=== PATIENT | female | born 1990 | race Caucasian/White ===

== ENCOUNTER 2020-04-23 17:32 | Outpatient (CLI) | payer OTHER, SELFPAY ==
[2020-04-23 18:09] LABS: Hemoglobin A1C 4.9 % (<5.7)
[2020-04-27 03:58] LABS: Insulin Level Total 5.9 uIU/mL (<=19.6)
[2020-04-27 12:08] LABS: DHEA-Sulfate 309 mcg/dL (18-391)
[2020-04-28 14:00] LABS: Testosterone Total 50 ng/dL (2-45)
[2020-04-29 07:25] LABS: Progesterone 0.7 ng/mL (***); Prolactin 10.1 ng/mL (***)
== END 2020-04-23 17:33 | disposition home or self-care (01) ==
LOC: ANHLAB 17:35
PROVIDERS: Visit Provider Obstetrics & Gynecology
DX: N91.2 Amenorrhea, unspecified (principal)
CPT/HCPCS: 36415; 82627; 83036; 83525; 84144; 84146; 84403; 84439; 84443

== ENCOUNTER 2020-06-08 16:33 | Outpatient (CLI) | payer OTHER, SELFPAY ==
[2020-06-11 05:02] LABS: Progesterone 4.7 ng/mL (***)
== END 2020-06-08 16:34 | disposition home or self-care (01) ==
LOC: ANHLAB 16:34
PROVIDERS: Family Provider Internal Medicine; Visit Provider Obstetrics & Gynecology Gynecology
DX: Z31.41 Encounter for fertility testing (principal)
CPT/HCPCS: 36415; 84144

== ENCOUNTER 2020-07-17 07:11 | Outpatient (CLI) | payer OTHER, SELFPAY ==
[2020-07-21 07:14] LABS: Progesterone 16.3 ng/mL (***)
== END 2020-07-17 07:12 | disposition home or self-care (01) ==
PROVIDERS: PCP Family Medicine; Visit Provider Obstetrics & Gynecology
DX: N97.9 Female infertility, unspecified (principal)
CPT/HCPCS: 36415; 84144

== ENCOUNTER 2020-08-17 12:36 | Outpatient (CLI) | payer OTHER, SELFPAY ==
[2020-08-21 06:34] LABS: Progesterone 15.7 ng/mL (***)
== END 2020-08-17 12:37 | disposition home or self-care (01) ==
PROVIDERS: PCP Family Medicine; Visit Provider Obstetrics & Gynecology
DX: Z31.41 Encounter for fertility testing (principal)
CPT/HCPCS: 36415; 84144

== ENCOUNTER 2020-09-30 15:21 | Emergency (ER) | payer OTHER, SELFPAY ==
[2020-09-30 15:30] VITALS: BP 141/94; PULSE 113; RESP 16; TEMP 36.9; O2SAT 100
--- NOTE | 2020-09-30 15:45 | ED.GENADULT ---
HPI - General Adult General Chief complaint: Upper Respiratory Infection Stated complaint: Sore Throat Time Seen by Provider: 09/30/20 15:46 Source: patient and RN notes reviewed Mode of arrival: ambulatory Limitations: no limitations History of Present Illness HPI narrative: 30-year-old female presents with complaints of upper respiratory infection, postnasal drainage, intermittent cough for the past 9 days. Stella reports increasing symptoms over the past 5 days with sore throat. Allergy medication, Sudafed, and DayQuil without relief. No high fevers, drooling, neck or throat swelling. Pain is bilateral. Hurts to swallow. Exacerbation factors consist of eating and drinking. Rhinorrhea and nasal congestion. Hoarse voice. No nausea, vomiting, or abdominal pain. Tolerating liquids well. Denies dyspnea, difficulty swallowing, jaw pain, dental pain, facial pain, foreign body sensation, and rash. [facility] September 15, 2020. Remains active. The patient reports she have not been diagnosed with COVID-19. The patient reports she received 2 [employer] COVID-19 vacines. The patient reports she is not waiting for the results of a COVID-19 lab test. The patient reports she do not have chills, weakness, or fatigue. Denies chest pain. The patient reports she do not have any loss of taste or smell or diarrhea. Denies recent traveling. Denies concerns for COVID-19 or exposures. At this time, patient is not suspected of having COVID-19. Some parts of this dictation were generated by voice recognition software and may contain typographical and/or grammatical inaccuracies. Related Data Home Medications Medication Instructions Recorded Confirmed metformin mg 03/25/19 07/28/20 Allergies Allergy/AdvReac Type Severity Reaction Status Date / Time No Known Allergies Allergy Unknown Verified 07/28/20 09:54 Review of Systems Review of Systems: Narrative: CONSTITUTIONAL: Denies fever, chills, sweats. EYES: Denies visual changes, redness, discharge. ENT: Denies otalgia. Complains of sore throat, rhinorrhea, congestion, hoarse voice. CARDIOVASCULAR: Denies chest pain, palpitations, edema. RESPIRATORY: Denies dyspnea, wheezing. Complains of intermittent cough. GASTROINTESTINAL: Denies abdominal pain, nausea, vomiting, diarrhea. SKIN: Denies rash or itching. MUSCULOSKELETAL: Denies acute back pain, joint pain, or myalgia. NEUROLOGIC: Denies numbness or focal weakness. PSYCHIATRIC: Denies anxiety or depression. All systems reviewed & are unremarkable except as noted in HPI and below. [facility] Past Medical History Medical History (Updated 10/09/20 @ 11:25 by JAGDISH Andersen) Anxiety delivery delivered PCOS (polycystic ovarian syndrome) Secondary oligomenorrhea Surgical History Surgical History (Updated 09/30/20 @ 16:16 by JAGDISH Andersen) Previous section X1 Family History Family History (Updated 09/30/20 @ 16:17 by JAGDISH Andersen) Father Hypertension Mother Alive and well Other PCOS (polycystic ovarian syndrome) Social History Social History (Updated 09/30/20 @ 16:18 by JAGDISH Andersen) Social History: Smoking status: Never smoker Tobacco type: cigarettes Second hand tobacco smoke exposure: No Alcohol intake: current Alcohol use details: Stella reports using alcohol once or twice a month Substance use: never Substance use type: does not use Living arrangements: with family Occupation/Education: occupation Gender identity (if verbalized by the patient): Female Sexual Orientation (if Verbalized by the Patient): Straight or Heterosexual Comments At time of signature, agree with nurse past medical, surgical, social, and family history. There is no relevant family history pertinent to the presenting complaint. Exam Narrative: Exam Narrative: GENERAL: This is a well-nourished, well-developed patient, in no apparent distress. Speaks in
== END 2020-09-30 16:19 | disposition home or self-care (01) ==
PROVIDERS: Emergency Provider Nurse Practitioner Family; PCP Family Medicine
DX: J02.9 Acute pharyngitis, unspecified (principal); E28.2 Polycystic ovarian syndrome
CPT/HCPCS: 87081; 87880; 99213; G0463

== ENCOUNTER 2020-10-13 16:43 | Outpatient (CLI) | payer OTHER, SELFPAY ==
[2020-10-13 17:33] LABS: Beta HCG Quantitative < 2.39 mIU/ML
== END 2020-10-13 16:44 | disposition home or self-care (01) ==
LOC: ANHLAB 16:45
PROVIDERS: PCP Family Medicine; Visit Provider Obstetrics & Gynecology
DX: N91.2 Amenorrhea, unspecified (principal)
CPT/HCPCS: 36415; 84702

== ENCOUNTER 2020-11-12 10:06 | Outpatient (CLI) | payer OTHER, SELFPAY ==
[2020-11-12 11:03] LABS: Beta HCG Quantitative < 2.39 mIU/ML
[2020-11-12] MEDS: RHO(D) IMMUNE GLOBULIN 300 MCG/2 ML SYRINGE IM (13:27)
== END 2020-11-12 10:07 | disposition home or self-care (01) ==
LOC: ANHLAB 10:09
PROVIDERS: PCP Family Medicine; Visit Provider Obstetrics & Gynecology
DX: O26.21 Pregnancy care for patient with recurrent pregnancy loss, first trimester (principal); O26.851 Spotting complicating pregnancy, first trimester; Z3A.00 Weeks of gestation of pregnancy not specified
CPT/HCPCS: 36415; 84702; 85461; 90384; 96372; J2790

== ENCOUNTER 2021-01-08 10:56 | Outpatient (CLI) | payer OTHER, SELFPAY ==
[2021-01-08 11:49] LABS: Beta HCG Quantitative < 2.39 mIU/ML
[2021-01-13 07:05] LABS: Progesterone 7.7 ng/mL (***)
== END 2021-01-08 10:57 | disposition home or self-care (01) ==
PROVIDERS: PCP Family Medicine; Visit Provider Obstetrics & Gynecology
DX: N97.0 Female infertility associated with anovulation (principal); E28.2 Polycystic ovarian syndrome
CPT/HCPCS: 36415; 84144; 84702

== ENCOUNTER 2021-02-22 13:00 | Outpatient (CLI) | payer OTHER, SELFPAY ==
[2021-02-22 13:54] LABS: Beta HCG Quantitative < 2.39 mIU/ML
== END 2021-02-22 13:01 | disposition home or self-care (01) ==
PROVIDERS: PCP Family Medicine; Visit Provider Obstetrics & Gynecology
DX: N91.2 Amenorrhea, unspecified (principal)
CPT/HCPCS: 36415; 84702

== ENCOUNTER 2021-06-23 07:23 | Outpatient (RCR) | payer OTHER, SELFPAY ==
[2021-06-18 11:02] LABS: Beta HCG Quantitative 7.35 mIU/ML
[2021-06-21 08:52] LABS: Beta HCG Quantitative 6.57 mIU/ML
[2021-06-23 08:36] LABS: Beta HCG Quantitative < 2.39 mIU/ML
== END 2021-09-16 23:59 | disposition home or self-care (01) ==
LOC: ANHLAB 07:23
PROVIDERS: PCP Family Medicine; Visit Provider Obstetrics & Gynecology Gynecology
DX: O36.0190 Maternal care for anti-D [Rh] antibodies, unspecified trimester, not applicable or unspecified (principal); Z3A.00 Weeks of gestation of pregnancy not specified
CPT/HCPCS: 36415; 84702; 85461

== ENCOUNTER 2021-07-30 08:05 | Emergency (ER) | payer OTHER, SELFPAY ==
[2021-07-30 08:13] VITALS: BP 125/81; PULSE 89; RESP 16; TEMP 36.7; O2SAT 99
--- NOTE | 2021-07-30 08:32 | ED.FEMALEGU ---
HPI - Female Genitourinary General Chief complaint: Urogenital-Female Stated complaint: uti Time Seen by Provider: 07/30/21 08:21 Source: patient and RN notes reviewed Mode of arrival: ambulatory Limitations: no limitations History of Present Illness HPI Narrative: Patient presents today with a 10-day history of cloudy, malodorous urine x10 days. Patient is also experiencing intermittent sharp pains to the right lower quadrant. Denies dysuria, hematuria, frequency, fever. She has been taking some Tylenol with relief. History of PCOS. She did have some blood tests drawn a few days ago to check for , which was negative. Related Data Home Medications Medication Instructions Recorded Confirmed metformin 500 mg PO DAILY 03/25/19 07/30/21 Allergies Allergy/AdvReac Type Severity Reaction Status Date / Time No Known Allergies Allergy Unknown Verified 07/30/21 08:10 Review of Systems Review of Systems: CONSTITUTIONAL: Denies body aches, fever, chills, or sweats. EYES: Denies visual changes, redness, or discharge. ENT: Denies rhinorrhea, congestion, sore throat, or otalgia. CARDIOVASCULAR: Denies chest pain, palpitations, or edema. RESPIRATORY: Denies cough or dyspnea. GASTROINTESTINAL: Denies nausea, vomiting, or diarrhea.+ Lower abdominal pains GENITOURINARY:+ Cloudy malodorous urine. SKIN: Denies rash, itching, or wounds. MUSCULOSKELETAL: Denies back pain, joint pain, or myalgia. NEUROLOGIC: Denies headache, numbness, tingling, or weakness. PSYCH: Denies depression or anxiety. [facility] Past Medical History Medical History Anxiety delivery delivered PCOS (polycystic ovarian syndrome) Secondary oligomenorrhea Surgical History Surgical History Previous section X1 Family History Family History Father Hypertension Mother Alive and well Other PCOS (polycystic ovarian syndrome) Social History Social History Social History: Smoking status: Never smoker Tobacco type: cigarettes Second hand tobacco smoke exposure: No Alcohol intake: current Alcohol use details: Stella reports using alcohol once or twice a month Substance use: never Substance use type: does not use Gender identity (if verbalized by the patient): Female Sexual Orientation (if Verbalized by the Patient): Straight or Heterosexual Comments At time of signature, I have reviewed and agree with nursing past medical, surgical, social and family history unless otherwise noted. Please see nursing chart for further information. There is no relevant family history pertinent to the presenting complaint Exam Narrative: GENERAL: Well-appearing, well-nourished, and in no acute distress. HEAD: Normocephalic, atraumatic. EYES: EOMI. No redness or drainage. Conjunctivae normal. ENT: Mucous membranes pink and moist. NECK: Normal AROM. CHEST: No respiratory distress. Clear to auscultation. HEART: Regular rate and rhythm. No murmur appreciated. Normal peripheral pulses. ABDOMEN: Soft, nondistended, normal active bowel sounds. -CVAT. +tenderness to the right lower quadrant without rebound or guarding. MUSCULOSKELETAL: No bony tenderness. EXTREMITIES: Normal range of motion. No edema. SKIN: Warm, dry, no rash. Capillary refill normal. Normal skin turgor. NEURO: No focal deficits. Alert and oriented x3. Gait steady. PSYCH: Normal affect. No signs of depression or anxiety. Course Course Level of Care: Express Care Visit Vital Signs Vital signs: Vital Signs Temperature 98.1 F 07/30/21 08:13 Pulse Rate 89 07/30/21 08:13 Respiratory Rate 16 07/30/21 08:13 Blood Pressure 125/81 07/30/21 08:13 Pulse Oximetry 99 07/30/21 08:13 Tempera
== END 2021-07-30 08:40 | disposition home or self-care (01) ==
PROVIDERS: Emergency Provider Nurse Practitioner; PCP Family Medicine
DX: N30.01 Acute cystitis with hematuria (principal); E28.2 Polycystic ovarian syndrome
CPT/HCPCS: 81003; 87077; 87086; 87186; 99213; G0463

== ENCOUNTER 2021-08-13 08:01 | Outpatient (RCR) | payer OTHER, SELFPAY ==
[2021-07-28 13:03] LABS: Beta HCG Quantitative < 2.39 mIU/ML
[2021-08-09 11:30] LABS: Beta HCG Quantitative 39.94 mIU/ML
[2021-08-11 08:26] LABS: Beta HCG Quantitative 70.24 mIU/ML
[2021-08-13 08:42] LABS: Beta HCG Quantitative 149.67 mIU/ML
== END 2021-10-26 23:59 | disposition home or self-care (01) ==
LOC: ANHLAB 08:01
PROVIDERS: PCP Family Medicine; Visit Provider Obstetrics & Gynecology Gynecology
DX: O26.21 Pregnancy care for patient with recurrent pregnancy loss, first trimester (principal); Z3A.00 Weeks of gestation of pregnancy not specified
CPT/HCPCS: 36415; 84702

== ENCOUNTER 2021-08-23 09:45 | Outpatient (CLI) | payer OTHER, SELFPAY ==
[2021-08-23] MEDS: RHO(D) IMMUNE GLOBULIN 300 MCG/2 ML SYRINGE IM (16:24)
== END 2021-08-23 09:46 | disposition home or self-care (01) ==
PROVIDERS: PCP Family Medicine; Visit Provider Obstetrics & Gynecology Gynecology
DX: O26.21 Pregnancy care for patient with recurrent pregnancy loss, first trimester (principal); Z3A.00 Weeks of gestation of pregnancy not specified
CPT/HCPCS: 36415; 84702; 85461; 90384; 96372; J2790

== ENCOUNTER 2021-08-30 10:34 | Outpatient (CLI) | payer OTHER, SELFPAY ==
--- NOTE | ~2021-08-30 | US_ITS ---
EXAMINATION: US OB <=14 wk fetus w TV DATE: 08/30/2021 12:03 INDICATION: Uncertain dating of first trimester TECHNIQUE: Real-time pelvic ultrasound utilizing both a transvaginal and transabdominal probe was pe rformed. The interpreting radiologist was not present for the study. COMPARISON: None. FINDINGS: The uterus measures 10.0 x 7.3 x 6.4 cm. There is an intrauterine gestational sac. A yolk sac and fe valentín pole are identified. The crown rump length measures 8 mm, which correlates with an estimated gest ational age of 6 weeks and 5 days. heart motion is identified measuring 138 beats per minute (b pm) by M-mode Doppler. Minimal anechoic fluid within the endometrial canal. The right ovary measures 2.6 x 1.8 x 1.9 cm. The left ovary measures 3.7 x 2.4 x 2.5 cm. 1.7 cm thick-walled centrally anechoi c corpus luteum cyst in the left ovary. There is no free fluid in the pelvis. IMPRESSION: 1. Single living fetus with heart rate of 138 bpm. 2. Gestational age by ultrasound of 6 weeks 5 day(s) +/- 4 day(s) with ultrasound estimated date of delivery (HALLE) of 04/20/2022. Reviewed, dictated and finalized at location A. IMPRESSION: 1. Single living fetus with heart rate of 138 bpm. 2. Gestational age by ultrasound of 6 weeks 5 day(s) +/- 4 day(s) with ultraso und estimated date of delivery (HALLE) of 04/20/2022.
== END 2021-08-30 10:35 | disposition home or self-care (01) ==
LOC: ANHIMG 10:38
PROVIDERS: PCP Family Medicine; Visit Provider Obstetrics & Gynecology Gynecology
DX: Z36.87 Encounter for antenatal screening for uncertain dates (principal); Z3A.01 Less than 8 weeks gestation of pregnancy
CPT/HCPCS: 76801; 76817

== ENCOUNTER 2021-10-08 14:30 | Outpatient (CLI) | payer OTHER, SELFPAY ==
[2021-10-08 15:07] LABS: Basophils Percent Auto 0.2 % (0.2-1.2); Eosinophils Absolute Auto 0.1 K/mm3 (0-0.3); Eosinophils Percent Auto 0.6 % (0-4.4); Hematocrit 36.6 % (37.0-47.0); Immature Granulocyte Absolute 0.06 K/mm3 (0.00-0.031); Immature Granulocyte Percent A 0.4 % (0-0.5); Lymphocytes Percent Auto 17.2 % (18.3-44.2); Mean Corpuscular HGB Conc 32.8 g/dl (32-36); Mean Corpuscular Hemoglobin 31.6 pg (26-34); Mean Corpuscular Volume 96.3 fl (80-100); Mean Platelet Volume 10.2 fl (7.4-10.4); Monocytes Absolute Auto 0.9 K/mm3 (0.1-0.6); Monocytes Percent Auto 6.2 % (2.6-8.5); Neutrophils Absolute Auto 10.5 K/mm3 (1.3-6.7); Neutrophils Percent Auto 75.4 % (45.5-73.1); Platelet Count Result 264 k/mm3 (150-375); Red Cell Distribution Width 13.6 % (11.5-14.5); White Blood Count 13.9 K/mm3 (4.5-10.0)
[2021-10-08 15:16] LABS: Alanine Aminotransferase 10 U/L (6-35); Albumin Level 3.9 g/dL (3.5-5.1); Alkaline Phosphatase 77 U/L (38-126); Anion Gap 7 mmol/L (8-16); Aspartate Amino Transferase 35 U/L (14-36); Bilirubin,Total 0.2 mg/dL (0.2-1.3); Blood Urea Nitrogen 11 mg/dL (7-17); Carbon Dioxide 22 mmol/L (22-30); Chloride 106 mmol/L (98-107); Estimated Glomerular Filt Rate > 60; Glucose 82 mg/dL (65-110); Potassium 4.1 mmol/L (3.4-5.0); Sodium 135 mmol/L (137-145)
[2021-10-08 15:45] LABS: Vitamin D 25 Hydroxy 32.9 ng/mL
[2021-10-08 15:56] LABS: HIV 1/2 Ab P24 Ag Result Negative (Negative)
[2021-10-08 16:03] LABS: Hepatitis B Surface Antigen Negative (Negative); Rubella IgG Antibody 18.7 IU/ML
[2021-10-08 16:16] LABS: Hepatitis C Virus Antibody Negative (Negative)
[2021-10-11 06:27] LABS: Rapid Plasma Reagin Non-Reactive (NonReactive)
== END 2021-10-08 14:31 | disposition home or self-care (01) ==
LOC: ANHLAB 14:33
PROVIDERS: PCP Family Medicine; Visit Provider Advanced Practice Midwife
DX: Z36.9 Encounter for antenatal screening, unspecified (principal)
CPT/HCPCS: 36415; 80053; 82306; 82728; 82747; 85025; 86592; 86703; 86762; 86803; 86850; 86880; 86900; 86901; 86902; 87340; G0432

== ENCOUNTER 2021-10-12 14:41 | Outpatient (CLI) | payer OTHER, SELFPAY ==
[2021-10-12 15:15] LABS: Hemoglobin A1C 4.7 % (<5.7)
== END 2021-10-12 14:42 | disposition home or self-care (01) ==
LOC: ANHLAB 14:46
PROVIDERS: PCP Family Medicine; Visit Provider Advanced Practice Midwife
DX: Z36.9 Encounter for antenatal screening, unspecified (principal); Z3A.00 Weeks of gestation of pregnancy not specified
CPT/HCPCS: 36415; 83036

== ENCOUNTER 2021-11-02 16:19 | Outpatient (CLI) | payer OTHER, SELFPAY ==
--- NOTE | ~2021-11-02 | US_ITS ---
EXAMINATION: US OB follow up DATE: 11/02/2021 16:55 INDICATION: Cramping during first trimester TECHNIQUE: Real-time ultrasound of the pelvis was performed. The interpreting radiologist was not pre sent for the study. COMPARISON: 08/30/2021 FINDINGS: There is a single living fetus in transverse lie. The placenta is posterior and 5.3 cm from the internal cervical os. cardiac activity and movement are noted. heart rate is 1 55 beats per minute (bpm). The amniotic fluid index is subjectively normal. The following biometric data were obtained: Biparietal diameter (BPD): 3.3 cm; head circumference (HC): 12.3 cm; abdominal circumference (AC): 10 .0 cm; femur length (FL): 2.1 cm. These measurements are concordant. Estimated weight is 146 g +/- 21 g, which correlates with the 32nd percentile when 04/17/2022 is used as estimated date of delivery. As single measurements, these parameters are each equal to the following estimated gestational ages w ith ranges of +/- 2 standard deviations: BPD: 16 weeks 1 days +/- 1 weeks 1 days. HC: 16 weeks 1 days +/- 1 weeks 1 days. AC: 16 weeks 0 days +/- 1 weeks 5 days. FL: 16 weeks 2 days +/- 1 weeks 3 days. estimated gestational age based solely on measurements from this exam is 16 weeks 1 days +/- 1 weeks 1 days. IMPRESSION: 1. Single living fetus in transverse lie. 2. Estimated weight is 146 g +/- 21 g, which correlates with the 32nd percentile when 04/17/2022 is used as estimated date of delivery. Reviewed, dictated and finalized at location A. IMPRESSION: 1. Single living fetus in transverse lie. 2. Estimated weight is 146 g +/- 21 g, which correlates with the 32nd per centile when 04/17/2022 is used as estimated date of delivery.
== END 2021-11-02 16:20 | disposition home or self-care (01) ==
PROVIDERS: PCP Family Medicine; Visit Provider Obstetrics & Gynecology Gynecology
DX: O26.92 Pregnancy related conditions, unspecified, second trimester (principal); Z3A.16 16 weeks gestation of pregnancy
CPT/HCPCS: 76816

== ENCOUNTER 2021-11-09 10:07 | Emergency (ER) | payer OTHER, SELFPAY ==
[2021-11-09 10:17] VITALS: BP 132/66; PULSE 98; RESP 20; TEMP 36.9; O2SAT 100
--- NOTE | 2021-11-09 10:50 | ED.URI ---
HPI - URI/Sore Throat General Chief Complaint: Upper Respiratory Infection Stated Complaint: ENT pain Time Seen by Provider: 11/09/21 10:43 Source: patient Mode of arrival: ambulatory Limitations: no limitations History of Present Illness HPI Narrative: Patient presents today complaining of a 2-week history of sore throat, ear pressure, congestion, cough. States the symptoms have waxed and waned over the past 2 weeks, but are now worse again. She is currently 17 weeks . Denies shortness of breath or difficulty swallowing. She currently rates her pain 3/10 and has been taking Tylenol with mild relief. No history of asthma or COPD. Related Data Home Medications Medication Instructions Recorded Confirmed metformin 500 mg tablet 500 mg PO DAILY 03/25/19 07/30/21 Allergies Allergy/AdvReac Type Severity Reaction Status Date / Time No Known Allergies Allergy Unknown Verified 07/30/21 08:10 Review of Systems Review of Systems: CONSTITUTIONAL: Denies body aches, fever, chills, or sweats. EYES: Denies visual changes, redness, or discharge. ENT: Denies rhinorrhea. + Congestion, sore throat, bilateral ear pressure CARDIOVASCULAR: Denies chest pain, palpitations, or edema. RESPIRATORY: Denies dyspnea.+ Cough GASTROINTESTINAL: Denies abdominal pain, nausea, vomiting, or diarrhea. GENITOURINARY: Denies dysuria or hematuria. SKIN: Denies rash, itching, or wounds. MUSCULOSKELETAL: Denies back pain, joint pain, or myalgia. NEUROLOGIC: Denies headache, numbness, tingling, or weakness. PSYCH: Denies depression or anxiety. [facility] Past Medical History Medical History Anxiety delivery delivered PCOS (polycystic ovarian syndrome) Secondary oligomenorrhea Surgical History Surgical History Previous section X1 Family History Family History Father Hypertension Mother Alive and well Other PCOS (polycystic ovarian syndrome) Social History Social History Social History: Smoking status: Never smoker Tobacco type: cigarettes Second hand tobacco smoke exposure: No Alcohol intake: current Alcohol use details: Stella reports using alcohol once or twice a month Substance use: never Substance use type: does not use Gender identity (if verbalized by the patient): Female Sexual Orientation (if Verbalized by the Patient): Straight or Heterosexual Comments At time of signature, I have reviewed and agree with nursing past medical, surgical, social and family history unless otherwise noted. Please see nursing chart for further information. There is no relevant family history pertinent to the presenting complaint Exam Narrative: GENERAL: Well-appearing, well-nourished, and in no acute distress. HEAD: Normocephalic, atraumatic. EYES: EOMI. No redness or drainage. Conjunctivae normal. ENT: Mucous membranes pink and moist. Nares congested.. No rhinorrhea. Bilateral maxillary sinus tenderness. No frontal sinus tenderness. TMs normal bilaterally. Throat normal. Uvula midline. NECK: Normal AROM. Supple. No lymphadenopathy. CHEST: No respiratory distress. Clear to auscultation. HEART: Regular rate and rhythm. No murmur appreciated. Normal peripheral pulses. EXTREMITIES: Normal range of motion. No edema. SKIN: Warm, dry, no rash. Capillary refill normal. Normal skin turgor. NEURO: No focal deficits. Alert and oriented x3. Gait steady. PSYCH: Normal affect. No signs of depression or anxiety. Course Course Level of Care: Express Care Visit Vital Signs Vital signs: Vital Signs Temperature 98.4 F 11/09/21 10:17 Pulse Rate 98 11/09/21 10:17 Respiratory Rate 20 11/09/21 10:17 Blood Pressure 132/66 11/09/21 10:17 Pulse Oxi
== END 2021-11-09 10:57 | disposition home or self-care (01) ==
PROVIDERS: Emergency Provider Nurse Practitioner; PCP Family Medicine
DX: O99.512 Diseases of the respiratory system complicating pregnancy, second trimester (principal); Z3A.17 17 weeks gestation of pregnancy; J01.00 Acute maxillary sinusitis, unspecified; O99.282 Endocrine, nutritional and metabolic diseases complicating pregnancy, second trimester; E28.2 Polycystic ovarian syndrome
CPT/HCPCS: 99213; G0463

== ENCOUNTER 2022-01-24 10:09 | Outpatient (CLI) | payer OTHER, SELFPAY ==
[2022-01-24 11:47] LABS: Hematocrit 32.5 % (37.0-47.0); Hemoglobin 10.9 g/dL (12.0-15.0)
[2022-01-24 12:00] LABS: Glucose 1 Hour PP 50gm Dose 111 mg/dL
[2022-01-24 12:38] LABS: Vitamin D 25 Hydroxy 33.2 ng/mL
[2022-01-24 12:39] LABS: HIV 1/2 Ab P24 Ag Result Negative (Negative)
== END 2022-01-24 10:10 | disposition home or self-care (01) ==
PROVIDERS: Advanced Practice Midwife; PCP Family Medicine; Visit Provider Obstetrics & Gynecology Gynecology
DX: Z36.9 Encounter for antenatal screening, unspecified (principal); Z3A.00 Weeks of gestation of pregnancy not specified
CPT/HCPCS: 36415; 82306; 82947; 85014; 85018; 86703; G0432

== ENCOUNTER 2022-02-16 09:06 | Outpatient (CLI) | payer OTHER, SELFPAY ==
[2022-02-16] MEDS: RHO(D) IMMUNE GLOBULIN 300 MCG/2 ML SYRINGE IM (14:01)
== END 2022-02-16 09:07 | disposition home or self-care (01) ==
PROVIDERS: PCP Family Medicine; Visit Provider Obstetrics & Gynecology Gynecology
DX: O36.0130 Maternal care for anti-D [Rh] antibodies, third trimester, not applicable or unspecified (principal); Z3A.00 Weeks of gestation of pregnancy not specified
CPT/HCPCS: 36415; 85461; 90384; 96372; J2790

== ENCOUNTER 2022-03-02 14:38 | Outpatient (CLI) | payer OTHER, SELFPAY ==
--- NOTE | ~2022-03-02 | US_ITS ---
EXAMINATION: US OB follow up DATE: 03/02/2022 15:37 INDICATION: Size greater than dates during third trimester TECHNIQUE: Real-time ultrasound of the pelvis was performed. The interpreting radiologist was not pre sent for the study. COMPARISON: None. FINDINGS: There is a single living fetus in vertex presentation. The placenta is fundal/posterior. Fe valentín cardiac activity and movement are noted. heart rate is 148 beats per minute (bpm). Th e amniotic fluid index is 15.0 cm which is normal (normal range: 8.3 cm to 24.5 cm). The following biometric data were obtained: Biparietal diameter (BPD): 8.2 cm; head circumference (HC): 30.5 cm; abdominal circumference (AC): 31 cm; femur length (FL): 6.6 cm. These measurements are concordant. Estimated weight is 2418 g +/- 362 g, which correlates with the 82nd percentile when 04/20/2022 is used as estimated date of delivery. As single measurements, these parameters are each equal to the following estimated gestational ages w ith ranges of +/- 2 standard deviations: BPD: 33 weeks 1 days +/- 3 weeks 1 days. HC: 33 weeks 6 days +/- 3 weeks 0 days. AC: 34 weeks 6 days +/- 3 weeks 0 days. FL: 34 weeks 0 days +/- 3 weeks 0 days. estimated gestational age based solely on measurements from this exam is 34 weeks 0 days +/- 2 weeks 3 days. IMPRESSION: 1. Single living fetus in vertex presentation. 2. Normal amniotic fluid index. 3. Estimated weight is 2418 g +/- 362 g, which correlates with the 82nd percentile when 04/20/20 22 is used as estimated date of delivery. Reviewed, dictated and finalized at location B. IMPRESSION: 1. Single living fetus in vertex presentation. 2. Normal amniotic fluid index. 3. Estimated weight is 2418 g +/- 362 g, which correlates with the 82nd p ercentile when 04/20/2022 is used as estimated date of delivery.
== END 2022-03-02 14:39 | disposition home or self-care (01) ==
PROVIDERS: PCP Family Medicine; Visit Provider Advanced Practice Midwife
DX: O36.63X0 Maternal care for excessive fetal growth, third trimester, not applicable or unspecified (principal); Z3A.34 34 weeks gestation of pregnancy
CPT/HCPCS: 76816

== ENCOUNTER 2022-04-06 16:05 | Outpatient (CLI) | payer OTHER, SELFPAY ==
--- NOTE | 2022-04-06 16:15 | PC.NURSE ---
To OB from office. Pt states she had elevated blood pressure in office prior to arrival. Here for PIH evaluation.
[2022-04-06 16:30] VITALS: TEMP 36.8
[2022-04-06 16:39] VITALS: BP 140/71; PULSE 110
[2022-04-06 16:46] VITALS: BP 115/59; PULSE 100
[2022-04-06 16:56] LABS: Appearance Urine Slightly Cloudy (Clear); Basophils Percent Auto 0.2 % (0.2-1.2); Bilirubin Urine Negative (Negative); Blood Urine Trace-lysed (Negative); Color Urine Yellow (Yellow); Eosinophils Absolute Auto 0.1 K/mm3 (0-0.3); Eosinophils Percent Auto 0.4 % (0-4.4); Glucose Urine UA Negative (Negative); Hematocrit 36.3 % (37.0-47.0); Hemoglobin 11.9 g/dL (12.0-15.0); Immature Granulocyte Absolute 0.18 K/mm3 (0.00-0.031); Immature Granulocyte Percent A 1.3 % (0-0.5); Ketones Urine Negative (Negative); Leukocyte Esterase Ur 2+ LEU/UL (NEGATIVE); Lymphocytes Absolute Auto 2.08 K/mm3 (0.9-3.2); Lymphocytes Percent Auto 14.9 % (18.3-44.2); Mean Corpuscular HGB Conc 32.8 g/dl (32-36); Mean Corpuscular Hemoglobin 32.5 pg (26-34); Mean Corpuscular Volume 99.2 fl (80-100); Mean Platelet Volume 10.6 fl (7.4-10.4); Monocytes Percent Auto 6.9 % (2.6-8.5); Neutrophils Absolute Auto 10.7 K/mm3 (1.3-6.7); Neutrophils Percent Auto 76.3 % (45.5-73.1); Nitrate Urine Negative (Negative); Platelet Count Result 255 k/mm3 (150-375); Protein Urine Negative (Negative); Red Blood Count 3.66 M/mm3 (4.2-5.4); Red Cell Distribution Width 13.4 % (11.5-14.5); Urobilinogen Urine 0.2 mg/dL (<2.0)
[2022-04-06 17:01] VITALS: BP 114/61; PULSE 98
[2022-04-06 17:05] LABS: Bacteria Urine 2+ /hpf; Mucus Urine Rare /lpf; Squamous Epithelial Cell Urine Many /hpf (Few)
[2022-04-06 17:06] LABS: Total Protein Urine Random 11 mg/dL; Ur Ttl Prot Creatinine Ratio 0.32 mg/mg (0-0.20)
[2022-04-06 17:08] LABS: Alanine Aminotransferase 14 U/L (6-35); Albumin Level 3.6 g/dL (3.5-5.1); Alkaline Phosphatase 109 U/L (38-126); Anion Gap 9 mmol/L (8-16); Aspartate Amino Transferase 19 U/L (14-36); Bilirubin,Total 0.2 mg/dL (0.2-1.3); Blood Urea Nitrogen 8 mg/dL (7-17); Calcium 8.8 mg/dL (8.4-10.2); Carbon Dioxide 21 mmol/L (22-30); Chloride 106 mmol/L (98-107); Estimated Glomerular Filt Rate > 60; Glucose 99 mg/dL (65-110); Potassium 3.8 mmol/L (3.4-5.0); Sodium 136 mmol/L (137-145); Uric Acid 5.1 mg/dL (2.5-7.5)
[2022-04-06 17:16] VITALS: BP 115/67; PULSE 91
[2022-04-06 17:19] LABS: Add Urine Microscopic? YES
--- NOTE | 2022-04-06 17:46 | PC.NURSE ---
Yumiko Holliday CNM discussed plan with Dr. Pavon. Pt to start 24 hour urine and office will follow up with her on Monday.
--- NOTE | 2022-04-06 18:11 | PC.NURSE ---
Documentation noted as Clarisa Thrasher RN was done by Paula Foss RN
== END 2022-04-06 18:00 | disposition home or self-care (01) ==
LOC: ANHOBOP 16:21 → ANHLDR 16:22
PROVIDERS: Advanced Practice Midwife; PCP Family Medicine; Visit Provider Obstetrics & Gynecology Gynecology
DX: O13.9 Gestational [pregnancy-induced] hypertension without significant proteinuria, unspecified trimester (principal); Z3A.00 Weeks of gestation of pregnancy not specified
CPT/HCPCS: 36415; 59025; 80053; 81001; 82570; 84156; 84550; 85025; 87086; 99199

== ENCOUNTER 2022-04-08 07:23 | Outpatient (NON) | payer OTHER, SELFPAY ==
[2022-04-08 07:23] VITALS: BMI 42.9
[2022-04-08 10:18] LABS: Collection Time Urine 24 HOURS
[2022-04-08 10:19] LABS: Patient Weight 250 Lbs; Total Volume 24 Hour Urine 1900 ml
[2022-04-08 10:30] LABS: Creatinine Urine 77.7 mg/dL
[2022-04-08 10:40] LABS: Total Protein Urine 24 Hr 152 mg/24hr (28-141); Total Protein Urine Random 8 mg/dL
[2022-04-08 11:10] LABS: Creatinine Clearance Urine 165.5 ml/min (75-125); Total Volume 24 Hour Urine 1900 ml
== END 2022-04-08 07:24 | disposition home or self-care (01) ==
LOC: ANHOBOP 07:52
PROVIDERS: PCP Family Medicine; Visit Provider Obstetrics & Gynecology Gynecology
DX: O13.9 Gestational [pregnancy-induced] hypertension without significant proteinuria, unspecified trimester (principal); Z3A.00 Weeks of gestation of pregnancy not specified
CPT/HCPCS: 81050; 82575; 84156

== ENCOUNTER 2022-04-11 16:50 | Outpatient (CLI) | payer OTHER, SELFPAY ==
--- NOTE | ~2022-04-11 | US_ITS ---
EXAMINATION: US OB follow up, US umbilical doppler DATE: 04/11/2022 17:49 INDICATION: Decreased movement. Evaluate growth and umbilical Dopplers. TECHNIQUE: Real-time ultrasound of the pelvis was performed. COMPARISON: 03/02/2022. FINDINGS: There is a single living fetus in vertex presentation. The placenta is fundal/posterior. heart rate is 146 beats per minute (bpm). The amniotic fluid index is 6.5 cm, which is low (5th to 95th pe rcentile range is 7.3 to 23.9 cm). Umbilical artery pulsed Doppler demonstrates peak systolic to end-diastolic velocity ratios (S/D rati os) of 1.7 and 1.9 near the fetus, 1.8 and 1.7 in the mid cord, and 2.0 and 1.9 near the placenta (5t h percentile = 1.9, 95th percentile = 3.1). The following biometric data were obtained: Biparietal diameter (BPD): 8.93 cm; head circumference (HC): 32.93 cm; abdominal circumference (AC): 33.15 cm; femur length (FL): 7.40 cm. These measurements are concordant. Estimated weight is 3143 g +/- 471.39 g, which correlates with the 29th percentile when 04/20/20 is used as estimated date of delivery. As single measurements, these parameters are each equal to the following estimated gestational ages w ith ranges of +/- 2 standard deviations: BPD: 36 weeks 1 days +/- 3 weeks 1 days. HC: 37 weeks 3 days +/- 2 weeks 5 days. AC: 37 weeks 0 days +/- 3 weeks 0 days. FL: 37 weeks 6 days +/- 3 weeks 1 days. estimated gestational age based solely on measurements from this exam is 37 weeks 1 days +/- 2 weeks 4 days. IMPRESSION: 1. Single living fetus in vertex presentation. 2. Estimated gestational age by ultrasound 37 weeks 1 day (+/- 2 weeks 4 days). HALLE by ultrasound . 3. Low RORY of 6.5 cm. 4. Umbilical Doppler values detailed above. 5. Estimated weight is 3143 g +/- 471.39 g, which correlates with the 29th percentile when 04/20 is used as estimated date of delivery. Reviewed, dictated and finalized at location K. [employer] REPRESENTATIVE IMPRESSION: 1. Single living fetus in vertex presentation. 2. Estimated gestational age by ultrasound 37 weeks 1 day (+/- 2 weeks 4 days) . HALLE by ultrasound 05/01/2022. 3. Low RORY of 6.5 cm. 4. Umbilical Doppler values detailed above. 5. Estimated weight is 3143 g +/- 471.39 g, which correlates with the 29t h percentile when 04/20/2022 is used as estimated date of delivery.
== END 2022-04-11 16:51 | disposition home or self-care (01) ==
LOC: ANHIMG 16:57
PROVIDERS: PCP Family Medicine; Visit Provider Advanced Practice Midwife
DX: O98.513 Other viral diseases complicating pregnancy, third trimester (principal); Z3A.37 37 weeks gestation of pregnancy
CPT/HCPCS: 76816; 76820

== ENCOUNTER 2022-04-11 19:23 | Inpatient (IN) | payer OTHER, SELFPAY ==
--- NOTE | 2022-03-22 13:58 | PC.NURSE ---
Verified with OR schedule and patient--C/S on 04/14/22 at 0730 with tubal ligation Patient given requisition for lab draw on 04/13/22
--- NOTE | 2022-04-11 20:13 | WPDOBADMIT ---
Obstetrics - Admit Note Admission Note: record reviewed. No pertinent additions to the history and/or any subsequent changes in the physical findings that are not consistent with the expected course of the were found. Additions to the history and/or subsequent changes in the physical findings follow. Oligohydramnios and abnormal dopplers.
--- NOTE | 2022-04-11 20:13 | PM.IMHP ---
H&P: HPI History of Present Illness Date/Time: 04/11/22 20:02 Chief Complaint: None Review of Systems Review of Systems: All systems reviewed & are unremarkable except as noted in HPI and below [facility] Past Medical History Medical History (Updated 04/11/22 @ 20:17 by Sofya Palacios CNM) Anxiety delivery delivered Chromosomal translocation Robertsonian translocation PCOS (polycystic ovarian syndrome) Secondary oligomenorrhea Surgical History Surgical History Previous section X1 Family History Family History Father Hypertension Mother Alive and well Other PCOS (polycystic ovarian syndrome) Social History Social History Social History: Smoking status: Never smoker Tobacco type: cigarettes Second hand tobacco smoke exposure: No Alcohol intake: current Alcohol use details: Stella reports using alcohol once or twice a month Substance use: never Substance use type: does not use Gender identity (if verbalized by the patient): Female Sexual Orientation (if Verbalized by the Patient): Straight or Heterosexual Spiritual care concerns: No Meds Home Medications and Allergies Home Medications Medication Instructions Recorded Confirmed Type metformin 500 mg tablet 500 mg PO DAILY 03/25/19 07/30/21 History amoxicillin 875 mg tablet 875 mg PO Q12H 10 days #20 tabs 11/09/21 Rx Allergies Allergy/AdvReac Type Severity Reaction Status Date / Time No Known Allergies Allergy Unknown Verified 07/30/21 08:10 Exam Const: General: comfortable Resp: Effort & Inspection: normal respiratory effort Auscultation: clear to auscultation bilaterally Cardio: Rate: regular rate GI: GI Palp: Yes Soft to palpation Skin: General skin exam: no rashes or lesions noted Neuro: General: gait normal Speech: normal speech Sensory Exam: normal sensation Extrem: General: normal to inspection Psych: Mental Status: mental status grossly normal Assessment and Plan Assessment and plan (1) Oligohydramnios: Code(s): O41.00X0 - Oligohydramnios, unspecified trimester, not applicable or unspecified Status: Acute (2) Migraines: Code(s): G43.909 - Migraine, unspecified, not intractable, without status migrainosus Status: Acute (3) PCOS (polycystic ovarian syndrome): Code(s): E28.2 - Polycystic ovarian syndrome Status: Acute (4) Anxiety: Code(s): F41.9 - Anxiety disorder, unspecified Status: Acute (5) Chromosomal translocation: Code(s): 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 32 y.o. at 38 w 5d. 2. Oligohydramnios. RORY 6.5cm on ultrasound. Plan admission to L&D and IV fluids overnight. Plan for repeat delivery in the am. 3. Abnormal umbilical dopplers- plan continuous monitoring overnight and repeat delivery in the am. 4. Anxiety- no medications 5. PCOS- continue metformin 6. Hx Migraines- pt has had headaches x 1 week. Pain diminishes with Fioricet and Tylenol. CMP, CBC, 24 hour urine neg for preeclampsia. No visual changes, RUQ pain, or change in edema.
[2022-04-11 20:15] VITALS: BP 118/68; PULSE 86
--- NOTE | 2022-04-11 20:23 | PM.OBPNLAB ---
Pain Control Date/time seen: 04/11/22 20:05. Comments: Called Dr. Pavon at 1954. Discussed ultrasound findings. Plan for delivery in the morning. Discussed plan of care with Stella. Discussed plan for in the morning given her low amniotic fluid and abnormal dopplers. Pt agrees with plan of care. Contractions Monitor mode: None Status status: Category l
[2022-04-11 20:30] VITALS: BP 118/64; PULSE 93
[2022-04-11 20:39] VITALS: BMI 42.9
[2022-04-11 20:45] VITALS: BP 118/74; PULSE 87
--- NOTE | 2022-04-11 21:06 | LDADM ---
This patient, Stella Dillon, was admitted to [facility] on 04/11/22 at 19:23. Plans for labor, pain management and were discussed with patient. Patient/family oriented to hospital policies and general routines including ID bracelet, bed and alarms, visiting hours, pain management, procedures, bathroom and other care routines, personal items, smoking policy, room service/diet and guest tray routines, infant security routines, and visiting hours. Patient/Family are encouraged to report perceived risks to care and to ask questions if they do not understand what they are told or what they should do. See OBIX for further documentation.
[2022-04-11 21:33] LABS: Basophils Percent Auto 0.2 % (0.2-1.2); Eosinophils Absolute Auto 0.1 K/mm3 (0-0.3); Eosinophils Percent Auto 0.4 % (0-4.4); Hematocrit 37.5 % (37.0-47.0); Hemoglobin 12.4 g/dL (12.0-15.0); Immature Granulocyte Absolute 0.16 K/mm3 (0.00-0.031); Immature Granulocyte Percent A 1.2 % (0-0.5); Lymphocytes Absolute Auto 2.23 K/mm3 (0.9-3.2); Mean Corpuscular HGB Conc 33.1 g/dl (32-36); Mean Corpuscular Hemoglobin 32.3 pg (26-34); Mean Corpuscular Volume 97.7 fl (80-100); Mean Platelet Volume 10.6 fl (7.4-10.4); Monocytes Absolute Auto 0.9 K/mm3 (0.1-0.6); Monocytes Percent Auto 6.7 % (2.6-8.5); Neutrophils Absolute Auto 10.5 K/mm3 (1.3-6.7); Neutrophils Percent Auto 75.5 % (45.5-73.1); Platelet Count Result 221 k/mm3 (150-375); Red Blood Count 3.84 M/mm3 (4.2-5.4); Red Cell Distribution Width 13.4 % (11.5-14.5); White Blood Count 13.9 K/mm3 (4.5-10.0)
[2022-04-11 22:15] VITALS: BP 134/79; PULSE 84
[2022-04-12] VITALS (50 sets, daily range): BP systolic 70–132; BP diastolic 31–79; PULSE 69–95; RESP 13–20; TEMP 36.2–37.4; O2SAT 84–100
[2022-04-12] MEDS: LACTATED RINGERS 1,000 ML 125 ML IV CONT (04:30)
--- NOTE | 2022-04-12 06:52 | WPDANESEPPF ---
Anes - Initial Pre Proc Eval Procedure: Operation Date: 04/14/22 07:30 Proposed Procedures p Repeat Section with Bilateral Tubal Ligation - Bushra Pavon MD Date/Time: 04/12/22 06:52 Surgeon: Bushra Pavon MD Pre Op Diagnosis: previous- c-sec, desires sterilization Patient Data Age: 32 Gender: F Height: 1.63 m Weight: 113.4 kg Last Vital Signs Pulse 95 04/12/22 05:46 BP 128/79 04/12/22 05:46 O2 Del Method Room Air 04/11/22 21:05 Allergies Allergy/AdvReac Type Severity Reaction Status Date / Time No Known Allergies Allergy Unknown Verified 07/30/21 08:10 Home Medications Medication Instructions Recorded Confirmed Type metformin 500 mg tablet 500 mg PO DAILY 03/25/19 07/30/21 History amoxicillin 875 mg tablet 875 mg PO Q12H 10 days #20 tabs 11/09/21 Rx Laboratory Tests 04/11/22 04/11/22 04/11/22 21:22 21:22 21:22 WBC 13.9 K/mm3 H K/mm3 (4.5-10.0) RBC 3.84 M/mm3 L M/mm3 (4.2-5.4) Hgb 12.4 g/dL g/dL (12.0-15.0) Hct 37.5 % % (37.0-47.0) MCV 97.7 fl fl (80-100) MCH 32.3 pg pg (26-34) MCHC 33.1 g/dl g/dl (32-36) RDW 13.4 % % (11.5-14.5) Plt Count 221 k/mm3 k/mm3 (150-375) MPV 10.6 fl H fl (7.4-10.4) Immature Gran % (Auto) 1.2 % H % (0-0.5) Neut % (Auto) 75.5 % H % (45.5-73.1) Lymph % (Auto) 16.0 % L % (18.3-44.2) [place] % (Auto) 6.7 % % (2.6-8.5) Eos % (Auto) 0.4 % % (0-4.4) Baso % (Auto) 0.2 % % (0.2-1.2) Lymph # (Auto) 2.23 K/mm3 K/mm3 (0.9-3.2) [place] # (Auto) 0.9 K/mm3 H K/mm3 (0.1-0.6) Eos # (Auto) 0.1 K/mm3 K/mm3 (0-0.3) Baso # (Auto) 0.0 K/mm3 K/mm3 (0.0-0.1) Abs Immat Gran (auto) 0.16 K/mm3 H K/mm3 (0.00-0.031) Absolute Neuts (auto) 10.5 K/mm3 H K/mm3 (1.3-6.7) Absolute Nucleated RBC 0.0 K/mm3 K/mm3 (0.0-0.012) Nucleated RBC % 0.0 % % (0.0-0.2) RPR Pending Blood Type A Negative Antibody Screen Positive Antibody Identification Pending Antigen Identification Pending MARZENA, IgG Interpret Pending MARZENA, Poly Interpret Negative MARZENA, Complement Interp Pending Patient hx anesthesia problems: none Family hx anesthesia problems: none Results Review: All pre-operative results and documents have been reviewed as part of the pre-operative evaluation. [facility] Past Medical History Medical History Anxiety delivery delivered Chromosomal translocation Robertsonian translocation PCOS (polycystic ovarian syndrome) Secondary oligomenorrhea Surgical History Surgical History Previous section X1 Family History Family History Father Hypertension Mother Alive and well Other PCOS (polycystic ovarian syndrome) Social History Social History Social History: Smoking status: Never smoker Tobacco type: cigarettes Second hand tobacco smoke exposure: No Alcohol intake: current Alcohol use details: Stella reports using alcohol once or twice a month Substance use: never Substance use type: does not use Lack of Transportation: No Lack of Food: Never True Current Housing: I Have Housing Concerned About Future Housing: No Difficulty Paying Gas/Electric Bills: No Difficulty Paying for Meds: No Currently Unemployed: No Education: Bachelor's Degree Difficulty w/ Childcare or Family Care: No Gender identity (if verbalized by the patient): Female Sexual Orientation (if Verbalized by the Patient): Straight or Heterosexual S
[2022-04-12] MEDS: ceFAZolin 2 GM/D5W 50 ML 2 GM/50 ML BAG IVPB (07:18)
--- NOTE | 2022-04-12 07:31 | WPDHPUPDATE1 ---
History and Physical Update Update Date/Time: 04/12/22 07:31 History and Physical has been reviewed, including an updated exam of the patient. There are NO changes in the patient's condition. Risks, benefits, and alternatives have been discussed and questions answered. Patient agrees to proceed with procedure. Patient has decided on BTL for permanent sterilization. Patient aware this is a permanent and irreversible procedure that will render her sterile. She is also aware of a rare chance of failure with increased risk of ectopic. Plan to proceed with BTL and repeat csection.
--- NOTE | 2022-04-12 08:14 | W.PM.PROC2 ---
Procedure Note - Detailed Date of Procedure 04/12/22 Pre-op Diagnosis previous- c-sec desires sterilization Intrauterine at 38 and 6 7th weeks oligohydramnios and decreased movement Post-op Diagnosis Same Procedure Performed repeat low-transverse section and bilateral tubal ligation Surgeon Bushra Pavon MD Anesthesia Spinal Findings female weighing 7lb 5oz with 8 and 9 Apgars. Nuchal cord x2 and around the shoulder. Normal-appearing tubes ovaries and uterus. Description of Procedure The patient is taken to the operating room and placed under anesthesia in the dorsal supine position with a leftward tilt. Once anesthesia was deemed adequate she was prepped and draped in the usual sterile fashion. Pfannenstiel skin incision was made with a scalpel and carried down to the underlying layer of fascia which was extended laterally using Kruse scissors. Ochsner was used to tent the fascia which was dissected off using sharp dissection. The rectus muscles are in the midline and the peritoneum was tented and entered with Metzenbaum scissors. The incision was extended with blunt traction. The bladder blade is placed and the bladder flap was noted to be well below the area of uterine incision. The lower uterine segment is incised in a transverse fashion with the scalpel and extended with blunt traction. Membranes were ruptured and clear fluid noted. The infant's head was brought up into the incision and delivered while the assistant professor of radiology applied fundal pressure. The was fully delivered and the cord is on wrapped. The delayed cord clamping was for [id number]. The cord was then clamped and cut and the infant handed to the waiting nursery nurse. The placenta was removed using manual traction. The uterus is exteriorized, cleared of all clots and debris, and closed using 0 Monocryl in a running locked fashion with the same suture used to imbricate and obtain hemostasis. The cul-de-sac is irrigated. The left tube was grasped with a [place] cross clamped with a Z clamp and the distal 2/3 of the tube excised. The pedicles tied off using 0 Vicryl in a Elizabeth stitch as well as a free tie. The identical procedure was performed on the right side. The uterus was then returned to the abdomen and the incision again inspected and noted to be hemostatic. The pedicles are noted to be hemostatic. The fascia was then closed using 0 Vicryl in a running fashion. Subcutaneous tissues are irrigated and made hemostatic using Bovie cautery. Skin is closed using 4-0 Vicryl in a subcuticular fashion. Dermaflex was placed over the incision. Sponge, needle, and instrument counts are correct per the OR staff. The patient is taken to recovery in stable condition. Patient was given Ancef prior to incision. Estimated Blood Loss 245 Drains Yes ( Andre catheter) Packing No Pathology Yes ( partial tubes and placenta) Complications No immediate complications Condition Stable Disposition Floor
--- NOTE | 2022-04-12 08:18 | P.DS_ITS ---
DS: Admitting Diagnosis Discharge Date 04/14/22 Admitting Diagnosis intrauterine at 38 and 6 7th weeks decreased movement with oligohydramnios previous section request tubal ligation DS: Discharge Diagnosis Discharge Diagnosis (1) delivery delivered: Code(s): O82 - Encounter for delivery without indication Status: Acute OB - DS: Summary OB Procedures : NST and Ultrasound OB Procedures Intrapartum: low cervical, transverse and Tubal ligation OB Procedures: : None Peripartum Data Infant Delivery Method: Section Procedures: Procedures Operation Date: 04/12/22 07:30 <No data on this case meets the specified criteria> Status at Discharge Functional status at discharge: independent ambulation Overall status at discharge: patient is progressing back to baseline Time Spent with Patient Time attestation: Total time spent providing and/or coordinating discharge services: DS: Data Data Completed and Pending Labs on day of discharge: Labs from last 24 hours 04/11/22 04/11/22 04/11/22 21:22 21:22 21:22 WBC 13.9 H RBC 3.84 L Hgb 12.4 Hct 37.5 MCV 97.7 MCH 32.3 MCHC 33.1 RDW 13.4 Plt Count 221 MPV 10.6 H Immature Gran % (Auto) 1.2 H Neut % (Auto) 75.5 H Lymph % (Auto) 16.0 L [place] % (Auto) 6.7 Eos % (Auto) 0.4 Baso % (Auto) 0.2 Lymph # (Auto) 2.23 [place] # (Auto) 0.9 H Eos # (Auto) 0.1 Baso # (Auto) 0.0 Abs Immat Gran (auto) 0.16 H Absolute Neuts (auto) 10.5 H Absolute Nucleated RBC 0.0 Nucleated RBC % 0.0 RPR Pending Blood Type A Negative Antibody Screen Positive Antibody Identification Inconclusive Antigen Identification Cancelled MARZENA, IgG Interpret Not Performed MARZENA, Poly Interpret Negative MARZENA, Complement Interp Not Performed Discharge Plan Discharge Attending physician on discharge: Bushra Pavon Discharging Clinician: Bushra Pavon Anticipated Discharge Date/Time: 04/15/22 08:19 Patient Disposition: Home, Self-Care Activity: may shower, may drive after 2 weeks and pelvic rest Diet: regular Wound Care Instructions: incision open to air Patient Instructions: Antibiotic Form Stand Alone Forms: General Discharge Information Follow-up/Referrals: Bushra Pavon MD [Physician] - 1 Week ( and 6 week) Discharge Medications: New oxycodone-acetaminophen 5-325 mg Tablet 1 tablet PO Q4H PRN (Reason: Pain Rated 7 or Greater) Qty: 20 0RF Continued metformin 500 mg tablet 500 mg PO DAILY Date of admission: 04/11/22 19:23 Primary Care Provider: Mercedez Lopez Admitting Provider: Bushra Pavon Attending physician on admission: Bushra Pavon Condition: Stable
[2022-04-12] MEDS: fentaNYL CITRATE INJ (*CRX) 100 MCG/2 ML VIAL 25 MCG IV PUSH ×2 (09:46→10:15)
[2022-04-12] MEDS: OXYTOCIN 30 UNITS/NS 500 ML 30 UNITS/500 ML BAG 125 UNITS IV CONT (09:55)
--- NOTE | 2022-04-12 10:40 | OBPPTRN ---
Patient transferred to post room #283 via stretcher. Support person present. Oriented to unit, room, information board, rooming in, admission packet and security measures. Patient verbalizes understanding.
[2022-04-12] MEDS: KETOROLAC 30 MG/ML VIAL (*BKC) IV PUSH ×3 (11:14→23:20)
[2022-04-12 13:47] LABS: Rapid Plasma Reagin Non-Reactive (NonReactive)
[2022-04-12] MEDS: DEXTROSE 5%/0.45% SOD CHL 1,000 ML 125 ML IV CONT (14:21)
[2022-04-12] MEDS: DOCUSATE SODIUM 100 MG CAPSULE PO (17:11)
[2022-04-12] MEDS: MULTIVIT/MIN/PREN/FOL AC/IRON TABLET 1 TAB PO (17:11)
[2022-04-13 04:30] VITALS: BP 106/65; PULSE 90; RESP 18; TEMP 36.8; O2SAT 100
[2022-04-13 05:07] LABS: Basophils Percent Auto 0.3 % (0.2-1.2); Eosinophils Absolute Auto 0.1 K/mm3 (0-0.3); Eosinophils Percent Auto 0.8 % (0-4.4); Hemoglobin 10.6 g/dL (12.0-15.0); Immature Granulocyte Percent A 0.9 % (0-0.5); Lymphocytes Absolute Auto 1.52 K/mm3 (0.9-3.2); Lymphocytes Percent Auto 13.1 % (18.3-44.2); Mean Corpuscular HGB Conc 33.1 g/dl (32-36); Mean Corpuscular Hemoglobin 32.6 pg (26-34); Mean Corpuscular Volume 98.5 fl (80-100); Mean Platelet Volume 10.6 fl (7.4-10.4); Monocytes Absolute Auto 0.8 K/mm3 (0.1-0.6); Monocytes Percent Auto 7.2 % (2.6-8.5); Neutrophils Percent Auto 77.7 % (45.5-73.1); Platelet Count Result 185 k/mm3 (150-375); Red Blood Count 3.25 M/mm3 (4.2-5.4); Red Cell Distribution Width 13.4 % (11.5-14.5); White Blood Count 11.6 K/mm3 (4.5-10.0)
--- NOTE | 2022-04-13 07:37 | PM.OBPNVD ---
OB - PN: Subj Subjective Date/time seen: 04/13/22 07:37 Patient comments: no complaints and pain well controlled baby status: doing well OB - PN: Obj Data Labs 04/13/22 04:21 Labs: Laboratory Results - last 24 hr 04/11/22 04/13/22 04/13/22 21:22 04:21 04:21 WBC 11.6 H RBC 3.25 L Hgb 10.6 L Hct 32.0 L MCV 98.5 MCH 32.6 MCHC 33.1 RDW 13.4 Plt Count 185 MPV 10.6 H Immature Gran % (Auto) 0.9 H Neut % (Auto) 77.7 H Lymph % (Auto) 13.1 L [place] % (Auto) 7.2 Eos % (Auto) 0.8 Baso % (Auto) 0.3 Lymph # (Auto) 1.52 [place] # (Auto) 0.8 H Eos # (Auto) 0.1 Baso # (Auto) 0.0 Abs Immat Gran (auto) 0.10 H Absolute Neuts (auto) 9.0 H Absolute Nucleated RBC 0.0 Nucleated RBC % 0.0 RPR Non-reactive Blood Type A Negative Antibody Screen Negative OB - PN A/P Plan day: 1 Plan: routine care Time Spent With Patient Time: Total time spent is greater than 50% in coordination of care (as documented) at patient's floor/unit and/or counseling patient: Exam Narrative: inc c/d/i : Bimanual exam- vagina & uterus: other (Uterus firm, nt @U)
[2022-04-13 07:40] VITALS: BP 116/67; PULSE 88; RESP 18; TEMP 37.4; O2SAT 99
[2022-04-13] MEDS: IBUPROFEN 600 MG TABLET PO ×2 (08:17→19:22)
[2022-04-13] MEDS: MULTIVIT/MIN/PREN/FOL AC/IRON TABLET 1 TAB PO (08:18)
[2022-04-13] MEDS: DOCUSATE SODIUM 100 MG CAPSULE PO ×2 (08:18→16:37)
--- NOTE | 2022-04-13 08:30 | WPDANLDPN2 ---
Anes-Prog Note L&D Date/Time: 04/13/22 08:30 Comfortable throughout: section Neuraxial method: spinal Epidural/Spinal procedure site: clean & non-tender Neuro status: Neuro function grossly intact. Cardiovascular status: normal Airway patency: baseline Mental status: baseline Post-Op hydration status: normal Vital Signs: Last Vital Signs Temp 98.2 F 04/13/22 04:30 Pulse 90 04/13/22 04:30 Resp 18 04/13/22 04:30 BP 106/65 04/13/22 04:30 Pulse Ox 100 04/13/22 04:30 O2 Del Method Room Air 04/12/22 23:20 Pain score (VAS): 0 I/O: Intake & Output 04/12/22 04/13/22 04/13/22 23:59 07:59 15:59 Intake Total 1000 1000 Output Total 800 1000 Balance 200 0 Patient feedback: Patient satisfied with anesthetic care.
--- NOTE | 2022-04-13 08:31 | WPDANLDNPN2 ---
Anes-Prog Note L&D-Neuraxial Date/Time: 04/13/22 08:31 Neuraxial medications: intrathecal PF morphine Opiod-related complaints: pruritis severe, treatment refractory Patient feedback: Patient satisfied with post-operative pain management.
[2022-04-13] MEDS: oxyCODONE/ACETAMINOPHEN (*CRX) 5-325 MG TABLET 1 TABLET PO ×3 (11:06→23:59)
[2022-04-13] MEDS: RHO(D) IMMUNE GLOBULIN 300 MCG/2 ML SYRINGE IM ×2 (15:11→15:34)
[2022-04-13 16:39] VITALS: BP 136/73; PULSE 89; RESP 16; TEMP 36.7; O2SAT 98
[2022-04-13 19:25] VITALS: BP 137/82; PULSE 87; RESP 18; TEMP 36.9; O2SAT 98
--- NOTE | 2022-04-14 04:32 | P.PNOB_ITS ---
OB - PN: Subj Subjective Date/time seen: 04/14/22 04:32 Patient comments: no complaints and pain well controlled baby status: doing well OB - PN: Obj Data Labs 04/13/22 04:21 Labs: Laboratory Results - last 24 hr 04/13/22 04/13/22 04:21 04:21 WBC 11.6 H RBC 3.25 L Hgb 10.6 L Hct 32.0 L MCV 98.5 MCH 32.6 MCHC 33.1 RDW 13.4 Plt Count 185 MPV 10.6 H Immature Gran % (Auto) 0.9 H Neut % (Auto) 77.7 H Lymph % (Auto) 13.1 L [place] % (Auto) 7.2 Eos % (Auto) 0.8 Baso % (Auto) 0.3 Lymph # (Auto) 1.52 [place] # (Auto) 0.8 H Eos # (Auto) 0.1 Baso # (Auto) 0.0 Abs Immat Gran (auto) 0.10 H Absolute Neuts (auto) 9.0 H Absolute Nucleated RBC 0.0 Nucleated RBC % 0.0 Blood Type A Negative Antibody Screen Negative Screen Positive H Baby's Blood Type A pos Baby's MARZENA Negative KB Hemoglobin Positive Doses of RhIg Required 2 OB - PN A/P Plan day: 2 Plan: routine care and discharge home Time Spent With Patient Time: Total time spent is greater than 50% in coordination of care (as documented) at patient's floor/unit and/or counseling patient: Exam Narrative: inc c/d/i : Bimanual exam- vagina & uterus: other (Uterus firm, nt @U)
[2022-04-14] MEDS: IBUPROFEN 600 MG TABLET PO (06:53)
[2022-04-14] MEDS: oxyCODONE/ACETAMINOPHEN (*CRX) 5-325 MG TABLET 1 TABLET PO (06:53)
[2022-04-14 08:20] VITALS: BP 116/64; PULSE 85; RESP 16; TEMP 37; O2SAT 99
[2022-04-14] MEDS: MULTIVIT/MIN/PREN/FOL AC/IRON TABLET 1 TAB PO (08:48)
[2022-04-15 10:55] VITALS: BP 143/89; RESP 20; TEMP 36.9; O2SAT 99
== END 2022-04-14 11:23 | disposition home or self-care (01) | DRG 784 ==
LOC: ANHOBPP 04-12 08:20 → ANHOB2 04-12 10:41
PROVIDERS: Admitting Provider Obstetrics & Gynecology Gynecology; PCP Family Medicine; Visit Provider Obstetrics & Gynecology Gynecology
DX: O41.03X0 Oligohydramnios, third trimester, not applicable or unspecified (principal); O99.354 Diseases of the nervous system complicating childbirth; O34.211 Maternal care for low transverse scar from previous cesarean delivery; Z37.0 Single live birth; Z3A.38 38 weeks gestation of pregnancy; O99.284 Endocrine, nutritional and metabolic diseases complicating childbirth; E28.2 Polycystic ovarian syndrome; O99.344 Other mental disorders complicating childbirth; O69.82X0 Labor and delivery complicated by other cord entanglement, without compression, not applicable or unspecified; F41.9 Anxiety disorder, unspecified; G43.909 Migraine, unspecified, not intractable, without status migrainosus; Q99.8 Other specified chromosome abnormalities; Z30.2 Encounter for sterilization
CPT/HCPCS: 36415; 85025; 85460; 85461; 86592; 86850; 86880; 86900; 86901; 86902; 88302; 88307; 90384; A9270; J0131; J0690; J1885; J2274; J2590; J2790; J3010; J7120

== ENCOUNTER 2022-04-19 08:23 | Outpatient (CLI) | payer OTHER, SELFPAY ==
[2022-04-19 09:50] LABS: Free T4 Free Thyroxine 1.51 ng/mL (0.78-2.19)
== END 2022-04-19 08:24 | disposition home or self-care (01) ==
LOC: ANHLAB 08:25
PROVIDERS: PCP Family Medicine; Visit Provider Advanced Practice Midwife
DX: F53.0 Postpartum depression (principal)
CPT/HCPCS: 36415; 82607; 84439; 84443

== ENCOUNTER 2022-08-02 07:25 | Outpatient (CLI) | payer OTHER, SELFPAY ==
[2022-08-02 08:12] LABS: Hemoglobin A1C 4.8 % (<5.7)
[2022-08-05 12:39] LABS: Testosterone Total 45 ng/dL (2-45)
[2022-08-05 19:25] LABS: DHEA-Sulfate 154 mcg/dL (18-391)
== END 2022-08-02 07:26 | disposition home or self-care (01) ==
PROVIDERS: PCP Family Medicine; Visit Provider Obstetrics & Gynecology Gynecology
DX: E28.2 Polycystic ovarian syndrome (principal); Z68.41 Body mass index [BMI] 40.0-44.9, adult
CPT/HCPCS: 36415; 82627; 83036; 83498; 83525; 84146; 84403; 84443

== ENCOUNTER 2022-09-19 07:19 | Outpatient (CLI) | payer OTHER, SELFPAY ==
[2022-09-19 07:45] LABS: Basophils Percent Auto 0.3 % (0.2-1.2); Eosinophils Absolute Auto 0.1 K/mm3 (0-0.3); Eosinophils Percent Auto 1.5 % (0-4.4); Hematocrit 41.1 % (37.0-47.0); Hemoglobin 13.5 g/dL (12.0-15.0); Immature Granulocyte Absolute 0.04 K/mm3 (0.00-0.031); Immature Granulocyte Percent A 0.4 % (0-0.5); Lymphocytes Absolute Auto 2.32 K/mm3 (0.9-3.2); Lymphocytes Percent Auto 25.2 % (18.3-44.2); Mean Corpuscular HGB Conc 32.8 g/dl (32-36); Mean Corpuscular Volume 94.3 fl (80-100); Mean Platelet Volume 10.6 fl (7.4-10.4); Monocytes Absolute Auto 0.5 K/mm3 (0.1-0.6); Monocytes Percent Auto 5.8 % (2.6-8.5); Neutrophils Absolute Auto 6.2 K/mm3 (1.3-6.7); Neutrophils Percent Auto 66.8 % (45.5-73.1); Platelet Count Result 308 k/mm3 (150-375); Red Blood Count 4.36 M/mm3 (4.2-5.4); Red Cell Distribution Width 12.9 % (11.5-14.5); White Blood Count 9.2 K/mm3 (4.5-10.0)
[2022-09-19 07:54] LABS: Alanine Aminotransferase 25 U/L (6-35); Albumin Level 4.2 g/dL (3.5-5.1); Alkaline Phosphatase 97 U/L (38-126); Anion Gap 6 mmol/L (8-16); Aspartate Amino Transferase 25 U/L (14-36); Bilirubin,Total 0.4 mg/dL (0.2-1.3); Blood Urea Nitrogen 18 mg/dL (7-17); Calcium 8.8 mg/dL (8.4-10.2); Carbon Dioxide 27 mmol/L (22-30); Chloride 105 mmol/L (98-107); Cholesterol 156 mg/dL (0-200); Estimated Glomerular Filt Rate > 60; Glucose 91 mg/dL (65-110); HDL Direct 54 mg/dL; Potassium 4.5 mmol/L (3.4-5.0); Sodium 138 mmol/L (137-145); Triglycerides 109 mg/dL (<150)
[2022-09-19 08:05] LABS: LDL Cholesterol Direct 75 mg/dL
[2022-09-19 08:11] LABS: Vitamin D 25 Hydroxy 33.6 ng/mL
== END 2022-09-19 07:20 | disposition home or self-care (01) ==
PROVIDERS: PCP Family Medicine; Visit Provider Family Medicine
DX: R53.83 Other fatigue (principal); E55.9 Vitamin D deficiency, unspecified; D64.9 Anemia, unspecified; Z13.220 Encounter for screening for lipoid disorders
CPT/HCPCS: 36415; 80053; 80061; 82306; 85025

== ENCOUNTER 2023-03-08 10:14 | Outpatient (CLI) | payer OTHER, SELFPAY ==
[2023-03-11 11:11] LABS: Endomysial Ab (IgA) Screen Negative (Negative)
[2023-03-12 12:22] LABS: Tissue Transglutaminase IgA Ab <1.0 U/mL (<15.0)
== END 2023-03-08 10:15 | disposition home or self-care (01) ==
PROVIDERS: PCP Family Medicine; Visit Provider Family Medicine
DX: R11.2 Nausea with vomiting, unspecified (principal)
CPT/HCPCS: 36415; 86003; 86255; 86364

== ENCOUNTER 2023-03-15 10:35 | Emergency (ER) | payer OTHER, SELFPAY ==
[2023-03-15 10:40] VITALS: BP 128/82; PULSE 102; RESP 18; TEMP 37; O2SAT 97
--- NOTE | 2023-03-15 11:05 | ED.NAVMDI ---
HPI - Nausea/Vomiting/Diarrhea General Chief complaint: Nausea/Vomiting/Diarrhea Stated complaint: Vomiting/Diarrhea Time Seen by Provider: 03/15/23 10:53 Source: patient and RN notes reviewed Mode of arrival: ambulatory Limitations: no limitations History of Present Illness HPI Narrative: Patient presents today with a one-week history of diarrhea and abdominal cramping. She also reports vomiting since last night. Last episode of vomiting was at 2:00 a.m.. She has not tried to drink any fluids since that time. Denies any current blood or mucus in the stool. One week ago she tried some Pepto-Bismol for her diarrhea and she tried some ibuprofen last night for her abdominal cramping, as she believed it was due to her menstrual cycle. Patient states her and son were both sick a few days ago with vomiting episodes. Related Data Home Medications Medication Instructions Recorded Confirmed No Home Medications 03/15/23 03/15/23 Allergies Allergy/AdvReac Type Severity Reaction Status Date / Time No Known Allergies Allergy Unknown Verified 03/15/23 10:53 Review of Systems Review of Systems: CONSTITUTIONAL: Denies body aches, fever, chills, or sweats. EYES: Denies visual changes, redness, or discharge. ENT: Denies rhinorrhea, congestion, sore throat, or otalgia. CARDIOVASCULAR: Denies chest pain, palpitations, or edema. RESPIRATORY: Denies cough or dyspnea. GASTROINTESTINAL: Denies abdominal pain. + nausea, vomiting, diarrhea, abdominal cramping GENITOURINARY: Denies dysuria or hematuria. SKIN: Denies rash, itching, or wounds. MUSCULOSKELETAL: Denies back pain, joint pain, or myalgia. NEUROLOGIC: Denies headache, numbness, tingling, or weakness. PSYCH: Denies depression or anxiety. [facility] Past Medical History Medical History Anxiety delivery delivered Chromosomal translocation Robertsonian translocation PCOS (polycystic ovarian syndrome) Diagnosed 2017 Secondary oligomenorrhea Surgical History Surgical History Previous section 08/22/2018, 04/12/2022 Family History Family History Father Hypertension Mother Alive and well Other PCOS (polycystic ovarian syndrome) Social History Social History Social History: Smoking status: Never smoker Tobacco type: cigarettes Second hand tobacco smoke exposure: No Alcohol intake: current Alcohol use details: Stella reports using alcohol once or twice a month Substance use: never Substance use type: does not use Lack of Transportation: No Lack of Food: Never True Current Housing: I Have Housing Concerned About Future Housing: No Difficulty Paying Gas/Electric Bills: No Difficulty Paying for Meds: No Currently Unemployed: No Education: Bachelor's Degree Difficulty w/ Childcare or Family Care: No Living arrangements: with family Occupation/Education: occupation Gender identity (if verbalized by the patient): Female Sexual Orientation (if Verbalized by the Patient): Straight or Heterosexual Spiritual care concerns: No Comments At time of signature, I have reviewed and agree with nursing past medical, surgical, social and family history unless otherwise noted. Please see nursing chart for further information. There is no relevant family history pertinent to the presenting complaint Exam Narrative: GENERAL: Well-appearing, well-nourished, and in no acute distress. HEAD: Normocephalic, atraumatic. EYES: EOMI. No redness or drainage. Conjunctivae normal. ENT: Mucous membranes pink and moist. Nares clear. No rhinorrhea. TMs normal bilaterally. Throat normal. Uvula midline. NECK: Normal AROM. Supple. No lymphadenopathy. CHEST: No respiratory
[2023-03-15] MEDS: ONDANSETRON HCL ODT 4 MG TABLET 8 MG SUBLINGUAL (11:16)
== END 2023-03-15 12:02 | disposition home or self-care (01) ==
PROVIDERS: Emergency Provider Nurse Practitioner; PCP Family Medicine
DX: R11.2 Nausea with vomiting, unspecified (principal); R19.7 Diarrhea, unspecified
CPT/HCPCS: 99213; A9270; G0463

== ENCOUNTER 2023-04-19 16:12 | Outpatient (CLI) | payer OTHER, SELFPAY | END 2023-04-19 16:13 | disposition home or self-care (01) | PROVIDERS: PCP Family Medicine; Visit Provider Nurse Practitioner | DX: K90.49 Malabsorption due to intolerance, not elsewhere classified (principal) | CPT/HCPCS: 36415 ==

== ENCOUNTER 2023-05-05 02:24 | Day surgery (SDC) | payer OTHER, SELFPAY ==
[2023-04-18 15:08] VITALS: BMI 39.7
--- NOTE | 2023-05-03 09:29 | SUR.PREOP ---
Patient called regarding upcoming procedure. Message left on patient's voicemail regarding appointment times.
--- NOTE | 2023-05-04 10:07 | WPDANESEPPF ---
Anes - Initial Pre Proc Eval Procedure: Operation Date: 05/05/23 15:00 Proposed Procedures p Esophagogastroduodenoscopy & Colonoscopy - James Scales MD Date/Time: 05/04/23 10:07 Surgeon: James Scales MD Pre Op Diagnosis: abdominal pain, nausea with vomiting,GERD Patient Data Age: 33 Gender: F Height: 1.63 m Weight: 105 kg Allergies Allergy/AdvReac Type Severity Reaction Status Date / Time No Known Allergies Allergy Unknown Verified 04/18/23 15:07 Home Medications Medication Instructions Recorded Confirmed Type No Home Medications 04/12/23 04/18/23 History Patient hx anesthesia problems: none Family hx anesthesia problems: none Results Review: All pre-operative results and documents have been reviewed as part of the pre-operative evaluation. [facility] Past Medical History Medical History (Updated 04/12/23 @ 09:52 by Alis Palacios APRN) Abdominal pain Anxiety Belching delivery delivered Chromosomal translocation Robertsonian translocation Diarrhea GERD (gastroesophageal reflux disease) Nausea and vomiting Obesity PCOS (polycystic ovarian syndrome) Diagnosed 2017 Secondary oligomenorrhea Surgical History Surgical History (Updated 05/04/23 @ 10:08 by Luther Mccullough DO) History of tubal ligation Previous section 08/22/2018, 04/12/2022 Family History Family History Father Hypertension Mother Alive and well Other PCOS (polycystic ovarian syndrome) Social History Social History Social History: Smoking status: Never smoker Tobacco type: cigarettes Second hand tobacco smoke exposure: No Alcohol intake: current Drinks per week: 0 Alcohol use details: Stella reports using alcohol once or twice a month Substance use: never Substance use type: does not use Lack of Transportation: No Lack of Food: Never True Current Housing: I Have Housing Concerned About Future Housing: No Difficulty Paying Gas/Electric Bills: No Difficulty Paying for Meds: No Currently Unemployed: No Education: Bachelor's Degree Difficulty w/ Childcare or Family Care: No Living arrangements: with family Occupation/Education: occupation Gender identity (if verbalized by the patient): Female Sexual Orientation (if Verbalized by the Patient): Straight or Heterosexual Spiritual care concerns: No Anes - Eval Final PreProcedure Day of Procedure 05/04/23 10:07 Patient weight: obese Heart: regular rate and rhythm Lungs: clear to auscultation Airway: Mallampati scale class II Neurological: alert and oriented Last oral intake: >/= 8 hours ASA classification: II Emergent: no Anesthetic plan: proceed Anesthesia type and monitoring: general GIVS and standard monitoring Results Review: All pre-operative results and documents have been reviewed as part of the pre-operative evaluation. Informed Consent: The patient's anesthetic plan and its attendant risks and benefits were discussed with the patient/family/POA. Questions were solicited and answers provided to the satisfaction of the patient/family/POA.
[2023-05-05 12:40] VITALS: BP 125/86; PULSE 106; RESP 20; TEMP 36.1; O2SAT 100; BMI 39.4
[2023-05-05] MEDS: LACTATED RINGERS 1,000 ML 150 ML IV CONT (12:45)
--- NOTE | 2023-05-05 13:10 | WPDHPUPDATE1 ---
History and Physical Update Update Date/Time: 05/05/23 13:10 History and Physical has been reviewed, including an updated exam of the patient. There are NO changes in the patient's condition. Risks, benefits, and alternatives have been discussed and questions answered. Patient agrees to proceed with procedure.
--- NOTE | 2023-05-05 13:31 | SUR.OPER ---
EGD START 1313, END 1317 COLONOSCOPY START 1321, END 1331
[2023-05-05 13:33] VITALS: BP 122/79; PULSE 94; RESP 18; O2SAT 99
[2023-05-05 13:43] VITALS: BP 127/79; PULSE 92; RESP 20; O2SAT 99
[2023-05-05 13:53] VITALS: BP 104/71; PULSE 91; RESP 20; O2SAT 100
== END 2023-05-05 14:05 | disposition home or self-care (01) ==
PROVIDERS: PCP Family Medicine; Visit Provider Internal Medicine Gastroenterology
PROC: 0DJ08ZZ Inspection of Upper Intestinal Tract, Via Natural or Artificial Opening Endoscopic (ICD-10-PCS; CPT 43235; principal; 2023-05-05 15:00)
DX: K63.89 Other specified diseases of intestine (principal); K29.80 Duodenitis without bleeding; K29.50 Unspecified chronic gastritis without bleeding; K44.9 Diaphragmatic hernia without obstruction or gangrene; E66.9 Obesity, unspecified; Z68.39 Body mass index [BMI] 39.0-39.9, adult
CPT/HCPCS: 45380; 43239; 88305; J7120

== ENCOUNTER 2023-06-01 08:43 | Emergency (ER) | payer OTHER, SELFPAY ==
--- NOTE | ~2023-06-01 | XR_ITS ---
EXAMINATION: XR abdomen/kub 1V DATE: 06/01/2023 09:20 INDICATION: Left-sided low back pain. Microscopic hematuria. TECHNIQUE: A supine view of the abdomen on 2 radiographs was obtained. COMPARISON: None. FINDINGS: There are no dilated loops of bowel. There is a small volume of stool in the colon. Calcifi cations in the pelvis are likely phleboliths. IMPRESSION: 1. Phleboliths in the pelvis. Distal ureteral stone cannot be excluded. Reviewed, dictated and finalized at location E. CTOR OF INDIVIDUAL GIVING
[2023-06-01 09:04] VITALS: BP 132/79; PULSE 88; RESP 16; TEMP 37.5; O2SAT 100
--- NOTE | 2023-06-01 09:09 | ED.FEMALEGU ---
HPI - Female Genitourinary General Chief complaint: Urogenital-Female Stated complaint: urinary issue Time Seen by Provider: 06/01/23 09:05 Source: patient Mode of arrival: ambulatory Limitations: no limitations History of Present Illness HPI Narrative: Stella is a 33-year-old female patient presenting to the clinic today with complaints left-sided low back pain x3 days. She reports earlier this week she had a pain in the right lower abdomen that radiated into her groin however that pain has resolved. Denies any burning, frequency, or urgency with urination. Does not have any concern for any STIs. States that the left side of low back pain is dull and constant. No known injury or heavy lifting. No history of kidney stones in the past. History of tubal ligation/PCOS. Last menstrual period was a week and half ago. Related Data Home Medications Medication Instructions Recorded Confirmed azelastine 137 mcg (0.1 %) nasal 2 spray intranasal BID 06/01/23 06/01/23 spray aerosol Allergies Allergy/AdvReac Type Severity Reaction Status Date / Time No Known Allergies Allergy Unknown Verified 06/01/23 08:49 Review of Systems Review of Systems: Pertinent positives per HPI. Patient denies any fever, chills, rash, headache, visual changes, dizziness, cough, runny nose, sore throat, shortness of breath, chest pain, palpitations, nausea, vomiting, diarrhea, constipation, abdominal pain, or any urinary issues. [facility] Past Medical History Medical History Abdominal pain Anxiety Belching delivery delivered Chromosomal translocation Robertsonian translocation Diarrhea GERD (gastroesophageal reflux disease) Nausea and vomiting Obesity PCOS (polycystic ovarian syndrome) Diagnosed 2017 Secondary oligomenorrhea Surgical History Surgical History History of tubal ligation Previous section 08/22/2018, 04/12/2022 Family History Family History Father Hypertension Mother Alive and well Other PCOS (polycystic ovarian syndrome) Social History Social History Social History: Smoking status: Never smoker Tobacco type: cigarettes Second hand tobacco smoke exposure: No Alcohol intake: current Drinks per week: 0 Alcohol use details: Stella reports using alcohol once or twice a month Substance use: never Substance use type: does not use Lack of Transportation: No Lack of Food: Never True Current Housing: I Have Housing Concerned About Future Housing: No Difficulty Paying Gas/Electric Bills: No Difficulty Paying for Meds: No Currently Unemployed: No Education: Bachelor's Degree Difficulty w/ Childcare or Family Care: No Living arrangements: with family Occupation/Education: occupation Gender identity (if verbalized by the patient): Female Sexual Orientation (if Verbalized by the Patient): Straight or Heterosexual Spiritual care concerns: No Comments At the time of my signature, I reviewed and agree with the nursing past medical, surgical, social, and family history. There is no relevant family history pertinent to the patient complaint. Exam Narrative: General: Well-developed,obese, in no apparent distress. Head: Normocephalic, atraumatic. Cardio: Regular rate and rhythm, s1 and s2 normal, no murmur appreciated. Resp: Clear to auscultation bilaterally, no rhonchi, rales, wheezing or rubs. Abdomen: Soft, pliable, bowel sounds present in all quadrants, mild tender to palpation to the mid lower abdomen, no organomegly, no CVAT tenderness. Tenderness to palpation over the left lower back/flank Course Course Emergency Course: Portions of this record may have been created with voice recognition software. [facility]
== END 2023-06-01 09:48 | disposition home or self-care (01) ==
PROVIDERS: Emergency Provider Nurse Practitioner Family; PCP Family Medicine
DX: M54.50 Low back pain, unspecified (principal); R31.29 Other microscopic hematuria; K21.9 Gastro-esophageal reflux disease without esophagitis; E66.9 Obesity, unspecified; Z68.36 Body mass index [BMI] 36.0-36.9, adult; E28.2 Polycystic ovarian syndrome
CPT/HCPCS: 74018; 81003; 99213; G0463

== ENCOUNTER 2023-09-05 10:24 | Outpatient (CLI) | payer OTHER, SELFPAY ==
[2023-09-05 11:42] LABS: Vitamin D 25 Hydroxy 24.3 ng/mL
== END 2023-09-05 10:25 | disposition home or self-care (01) ==
LOC: ANHLAB 10:25
PROVIDERS: PCP Family Medicine; Visit Provider Advanced Practice Midwife
DX: E55.9 Vitamin D deficiency, unspecified (principal)
CPT/HCPCS: 36415; 82306

== ENCOUNTER 2023-11-29 08:03 | Emergency (ER) | payer OTHER, SELFPAY ==
--- NOTE | 2023-11-29 08:11 | ED.URI ---
HPI - URI/Sore Throat General Chief Complaint: Upper Respiratory Infection Stated Complaint: head congestion,ear /throat pain Time Seen by Provider: 11/29/23 08:11 Source: patient Mode of arrival: ambulatory Limitations: no limitations History of Present Illness HPI Narrative: 33-year-old female presents with complaint nasal congestion, sinus pressure and pain, postnasal drainage for 2 weeks. Over the last 3 days has had worsening of symptoms with sore throat, bilateral ear pain, coughing. No chest pain or shortness of breath. Afebrile. Denies chills, body aches. Took COVID test 5 days ago that was negative. All systems reviewed and negative except as noted above. Related Data Allergies Allergy/AdvReac Type Severity Reaction Status Date / Time No Known Allergies Allergy Unknown Verified 11/29/23 08:11 Review of Systems Review of Systems: CONSTITUTIONAL: Denies fever, chills, or sweats. EYES: Denies visual changes, redness, or discharge. ENT: Reports rhinorrhea, congestion, sore throat, and bilateral otalgia. CARDIOVASCULAR: Denies chest pain, palpitations, or edema. RESPIRATORY: reports cough. Denies dyspnea. GASTROINTESTINAL: Denies abdominal pain, nausea, vomiting, or diarrhea. GENITOURINARY: Denies dysuria or hematuria. SKIN: Denies rash or itching. MUSCULOSKELETAL: Denies back pain, joint pain, or myalgia. NEUROLOGIC: Denies headache, numbness, or weakness. PSYCHIATRIC: Denies anxiety or depression. All other systems reviewed are negative, except as documented in HPI. [facility] Past Medical History Medical History Abdominal pain Anxiety Belching delivery delivered Chromosomal translocation Robertsonian translocation Diarrhea GERD (gastroesophageal reflux disease) Nausea and vomiting Obesity PCOS (polycystic ovarian syndrome) Diagnosed 2017 Secondary oligomenorrhea Surgical History Surgical History History of tubal ligation Previous section 08/22/2018, 04/12/2022 Family History Family History Father Hypertension Mother Alive and well Other PCOS (polycystic ovarian syndrome) Social History Social History Social History: Smoking status: Never smoker Tobacco type: cigarettes Second hand tobacco smoke exposure: No Alcohol intake: current Drinks per week: 0 Alcohol use details: Stella reports using alcohol once or twice a month Substance use: never Substance use type: does not use Do You Feel Safe in your Home?: Yes Lack of Transportation: No Lack of Food: Never True Current Housing: I Have Housing Concerned About Future Housing: No Difficulty Paying Gas/Electric Bills: No Difficulty Paying for Meds: No Currently Unemployed: No Education: Bachelor's Degree Difficulty w/ Childcare or Family Care: No Living arrangements: with family Occupation/Education: occupation Gender identity (if verbalized by the patient): Female Sexual Orientation (if Verbalized by the Patient): Straight or Heterosexual Spiritual care concerns: No Comments At time of signature, agree with nursing past medical, surgical, social and family history. There is no relevant family history pertinent to the presenting complaint. Exam Narrative: GENERAL: This is a well-nourished, well-developed patient, in no apparent distress. HEAD: normocephalic, atraumatic. EYES: PERRL. Sclera clear/white. Vision is grossly intact. EARS: External ears normal, auditory canals clear and without drainage, Clear fluid bilateral TM without erythema or perforation. Hearing grossly intact. NOSE: External nose normal with moderate congestion, erythema to bilateral nares, purulent drainage. No sinus tenderness on palpation. THROAT: Mucous
[2023-11-29 08:12] VITALS: BP 124/86; PULSE 63; RESP 16; TEMP 36.7; O2SAT 99
== END 2023-11-29 08:26 | disposition home or self-care (01) ==
PROVIDERS: Emergency Provider Nurse Practitioner Family; PCP Family Medicine
DX: J01.90 Acute sinusitis, unspecified (principal); K21.9 Gastro-esophageal reflux disease without esophagitis; E66.9 Obesity, unspecified; Z68.36 Body mass index [BMI] 36.0-36.9, adult; E28.2 Polycystic ovarian syndrome; Q99.8 Other specified chromosome abnormalities
CPT/HCPCS: 99213; G0463

== ENCOUNTER 2024-04-05 09:14 | Outpatient (CLI) | payer OTHER, SELFPAY ==
[2024-04-05 09:58] LABS: Basophils Percent Auto 0.4 % (0.2-1.2); Eosinophils Percent Auto 0.4 % (0-4.4); Hematocrit 42.9 % (37.0-47.0); Hemoglobin 13.9 g/dL (12.0-15.0); Immature Granulocyte Absolute 0.04 K/mm3 (0.00-0.031); Immature Granulocyte Percent A 0.5 % (0-0.5); Lymphocytes Absolute Auto 1.99 K/mm3 (0.9-3.2); Lymphocytes Percent Auto 24.4 % (18.3-44.2); Mean Corpuscular HGB Conc 32.4 g/dl (32-36); Mean Corpuscular Hemoglobin 30.5 pg (26-34); Mean Corpuscular Volume 94.3 fl (80-100); Mean Platelet Volume 10.2 fl (7.4-10.4); Monocytes Absolute Auto 0.5 K/mm3 (0.1-0.6); Neutrophils Absolute Auto 5.6 K/mm3 (1.3-6.7); Neutrophils Percent Auto 68.3 % (45.5-73.1); Platelet Count Result 307 k/mm3 (150-375); Red Blood Count 4.55 M/mm3 (4.2-5.4); Red Cell Distribution Width 13.2 % (11.5-14.5); White Blood Count 8.2 K/mm3 (4.5-10.0)
[2024-04-05 10:13] LABS: Alanine Aminotransferase 18 U/L (6-35); Albumin Level 4.6 g/dL (3.5-5.1); Alkaline Phosphatase 109 U/L (38-126); Anion Gap 6 mmol/L (4-12); Aspartate Amino Transferase 25 U/L (14-36); Bilirubin,Total 0.7 mg/dL (0.2-1.3); Blood Urea Nitrogen 14 mg/dL (7-17); Calcium 9.3 mg/dL (8.4-10.2); Carbon Dioxide 28 mmol/L (22-30); Chloride 104 mmol/L (98-107); Estimated Glomerular Filt Rate > 60; Glucose 88 mg/dL (65-110); Potassium 4.2 mmol/L (3.4-5.0); Sodium 138 mmol/L (137-145)
[2024-04-05 11:32] LABS: Hemoglobin A1C 5.2 % (<5.7)
[2024-04-06 14:54] LABS: DHEA-Sulfate 149 mcg/dL (19-237)
== END 2024-04-05 09:15 | disposition home or self-care (01) ==
PROVIDERS: PCP Family Medicine; Referring Provider Advanced Practice Midwife; Visit Provider Family Medicine
DX: R10.9 Unspecified abdominal pain (principal); R53.83 Other fatigue; N92.1 Excessive and frequent menstruation with irregular cycle
CPT/HCPCS: 36415; 80053; 82627; 82728; 83036; 83498; 83525; 84144; 84402; 84403; 84439; 84443; 85025

== ENCOUNTER 2024-04-16 12:19 | Emergency (ER) | payer OTHER, SELFPAY ==
--- NOTE | 2024-04-16 12:25 | ED.URI ---
HPI - URI/Sore Throat General Chief Complaint: Upper Respiratory Infection Stated Complaint: Cough Time Seen by Provider: 04/16/24 12:25 Source: patient Mode of arrival: ambulatory Limitations: no limitations History of Present Illness HPI Narrative: Patient is a 34-year-old female who presents with 3 weeks of cough. Patient also reports chest wall pain with coughing that started Monday. Also reports intermittent shortness of breath. Denies any fever, chills, nausea vomiting, diarrhea. Has been using [id number] medication with no relief Related Data Home Medications Medication Instructions Recorded Confirmed ergocalciferol (vitamin D2) 1,250 50,000 unit PO WEEKLY 04/16/24 04/16/24 mcg (50,000 unit) capsule Allergies Allergy/AdvReac Type Severity Reaction Status Date / Time No Known Allergies Allergy Unknown Verified 04/16/24 12:32 Review of Systems Review of Systems: All systems reviewed & are unremarkable except as noted in HPI and below Constitutional: Constitutional: Denies body ache(s), Denies chills, Denies fatigue, Denies fever(s), Denies headache(s), Denies malaise and Denies weakness Eyes: Eyes: Denies blurry vision, Denies itchy eyes and Denies loss of vision ENT: Denies otalgia, Denies headache(s), Reports nasal congestion, Denies sinus pain and Denies sore throat Cardiovascular: Cardiovascular: Denies chest pain, Denies irregular heart rhythm, Denies dyspnea and Reports dyspnea on exertion Respiratory: Respiratory: Reports cough and Denies dyspnea Gastrointestinal: Gastrointestinal: Denies abdominal pain, Denies diarrhea, Denies nausea and Denies vomiting Musculoskeletal: Musculoskeletal: Denies back pain, Denies myalgias and Denies arthralgias Integumentary/Breasts: Skin/Breast: Denies pruritus and Denies rash Neurologic: Denies headache(s), Denies loss of vision and Denies weakness Psychiatric: Psychiatric: Reports no additional psychiatric complaints Endocrine: Endocrine: Denies fatigue Allergic/Immunologic: Allergic/Immunologic: Denies itchy eyes PMFSH Past Medical History Medical History Abdominal pain Anxiety Belching delivery delivered Chromosomal translocation Robertsonian translocation Diarrhea GERD (gastroesophageal reflux disease) Nausea and vomiting Obesity PCOS (polycystic ovarian syndrome) Diagnosed 2017 Secondary oligomenorrhea Surgical History Surgical History History of tubal ligation Previous section 08/22/2018, 04/12/2022 Family History Family History Father Hypertension Mother Alive and well Other PCOS (polycystic ovarian syndrome) Social History Social History Social History: Smoking status: Never smoker Tobacco type: cigarettes Second hand tobacco smoke exposure: No Alcohol intake: current Drinks per week: 0 Alcohol use details: Stella reports using alcohol once or twice a month Substance use: never Substance use type: does not use Do You Feel Safe in your Home?: Yes Lack of Transportation: No Lack of Food: Never True Current Housing: I Have Housing Concerned About Future Housing: No Difficulty Paying Gas/Electric Bills: No Difficulty Paying for Meds: No Currently Unemployed: No Education: Bachelor's Degree Difficulty w/ Childcare or Family Care: No Living arrangements: with family Occupation/Education: occupation Gender identity (if verbalized by the patient): Female Sexual Orientation (if Verbalized by the Patient): Straight or Heterosexual Spiritual care concerns: No Comments At time of signature, agree with nursing past medical, surgical, social and family history. There is no relevant family history pertinent to the presenting complaint. Exam Const: General: cooperative, healthy appearing, comfortable, no acute distress and well nourished Nutritional Appearance: well nourished Orientation/consciousness: patient oriented x3 Limitations: no limitations HENMT: Head: normal to inspection, normocephalic and atraumatic Ears: hearing grossly normal bilaterally, external ears normal, TM's normal bilaterally, EAC's normal and no periauricular adenopathy Face/Nose/Sinus: Normal external nose present, Abnormal mucous membranes and turbinates present erythematous bilateral and diffuse, normal facial exam, sinuses nontender and face symmetric Face and sinus: normal facial exam, sinuses nontender and face symmetric Mouth: Yes Normal oral and palatal mucosa present, Yes lip normal, Yes tongue normal, Yes Normal salivary glands and ducts present, Yes oropharynx normal and Yes moist mucous membranes Teeth and gingiva: dentition normal Throat: posterior oropharynx normal, tonsils normal and uvula midline Eyes: General: appearance normal, both eyes and all related structures Alignment and Position: alignment normal and position normal Periorbital: periorbital findings normal Eyelids: eyelids normal Pupils: Equal, round and reactive pupils present Neck: Neck: normal visual inspection, full ROM, no lymphadenopathy and supple Chest: Chest palpation & inspection: normal inspection of the chest and normal palpation of entire chest wall Resp: Effort & Inspection: normal respiratory effort, able to speak in complete sentences and Actively coughing actively coughing Auscultation: no crackles, no rales, no rhonchi, no wheezes and diminished lung sounds on the right in the lower lung panda Cardio: Rate: regular rate Rhythm: regular rhythm Heart sounds: S1 normal heart sound present and S2 normal heart sound present GI: Inspection: normal to inspection Skin: General skin exam: normal color and no rashes or lesions noted Neuro: General: patient oriented x3 and moves all extremities Cranial nerves: Yes Equal, round and reactive pupils present Speech: normal speech Gait exam (Neuro): Normal gait present Extrem: General: normal to inspection, full ROM and no edema Psych: Appearance: grossly normal and well kempt Mental Status: mental status grossly normal Speech and movement: Normal speech and movement present Affect: normal affect Attitude: cooperative Thought process: Normal thought process present Course Course Emergency Course: Patient is aware of diagnosis, understands and agrees to treatment plan. Anticipatory guidance given. Patient agrees to follow-up as directed and is aware of reasons to seek care at the emergency department. Portions of this record may have been created with voice recognition software Level of Care: Express Care Visit Vital Signs Vital signs: Reviewed MDM - URI/Sore Throat MDM Narrative Medical decision making narrative: Discharge instructions reviewed with patient, as well as provided in writing per nursing staff. The instructions also include specific and strict return/GO TO THE ER as well as f/u information. All questions have been answered, and the patient deny any further questions with discharge and discharge plan. Differential diagnosis considered: Pneumonia, Maradiaga virus, strep pharyngitis, allergic rhinitis, upper respiratory tract infection, sinusitis, rhinosinusitis, nasopharyngitis. viral pharyngitis, otitis media, otitis externa, otitis effusion, foreign body, cerumen impaction, viral syndrome, and influenza.? Exam findings show no acute concerns or changes; patient is non-toxic appearing and is in no distress.? Patient is appropriate for outpatient treatment and follow-up.? Medical Records Attestation: I reviewed the patient's medical records. Discharge Plan Discharge Clinical Impression: Pneumonia Qualifiers: Pneumonia type: due to unspecified organism Laterality: right Lung location: lower lobe of lung Qualified Code(s): J18.9 - Pneumonia, unspecified organism Patient Disposition: Home, Self-Care Condition: Stable Instructions: Bacterial Pneumonia (ED) Additional Instructions: Take antibiotic as prescribed. Take steroids in the morning with food. Use Tessalon Perles as needed for cough. Use inhaler with spacer as needed. Other symptomatic treatments include: -Alternate Tylenol and Motrin per package directions for fever or pain. -Antihistamine medication such as Benadryl at night and Zyrtec/Claritin/Keyonna during the day can help improve symptoms. -Use Flonase twice a day for 5 days then daily to help reduce the inflammation and dry up your sinuses. -You can also use Sudafed or Mucinex. Be sure to drink plenty of water with these medications at least 8 ounces with every dose and it is important to drink 8 to 10 glasses of water per day. Water is a natural decongestant -Eat and drink things that are easy to swallow, like tea or soup, or popsicles. -Oral rinses such as: Salt water gargles and/or may use topical anesthetic (eg. Chloraseptic spray) or lozenges to relieve dryness or throat pain). -Frequent hand washing or hand blankbook forwarder is one of the best ways to prevent spread of infection. -Using a vaporizer or humidifier at night will also help thin secretions and help with coughing up phlegm. -Follow up with primary care provider in 3-5 days if condition is not improving - For new or worsening symptoms go directly to the nearest ER Prescriptions: New (DME) Aerochamber MV Spacer See Rx Instructions .Route Qty: 1 0RF Rx Instructions: As directed prednisone 20 mg tablet 40 mg PO DAILY 5 Days Qty: 10 0RF amoxicillin 875 mg tablet 875 mg PO Q12H 7 Days Qty: 14 0RF benzonatate 100 mg capsule 100 mg PO BID PRN (Reason: cough) Qty: 14 0RF albuterol sulfate 90 mcg/actuation HFA aerosol inhaler 2 puff inhalation QID PRN (Reason: shortness of breath or wheezing) Qty: 6.7 0RF No Action ergocalciferol (vitamin D2) 1,250 mcg (50,000 unit) capsule 50,000 unit PO WEEKLY famotidine 40 mg tablet See Rx Instructions .ROUTE .COMPLEX Qty: 30 11RF Dose Instruction: TAKE 1 TABLET BY MOUTH DAILY Rx Instructions: TAKE 1 TABLET BY MOUTH DAILY Follow-up/Referrals: Tanna Crane DO [Primary Care Provider] - 3 Days Time of Disposition: 12:48
[2024-04-16 12:26] VITALS: BP 135/92; PULSE 73; RESP 16; TEMP 36.2; O2SAT 100
== END 2024-04-16 12:51 | disposition home or self-care (01) ==
PROVIDERS: Emergency Provider Nurse Practitioner Family; PCP Family Medicine
DX: J18.9 Pneumonia, unspecified organism (principal); K21.9 Gastro-esophageal reflux disease without esophagitis; E28.2 Polycystic ovarian syndrome; E66.9 Obesity, unspecified; Z68.37 Body mass index [BMI] 37.0-37.9, adult
CPT/HCPCS: 99213; G0463

== ENCOUNTER 2024-05-06 13:52 | Outpatient (CLI) | payer OTHER, SELFPAY ==
--- NOTE | ~2024-05-06 | XR_ITS ---
XR chest 2V Ordering provider: Tanna Crane DO History: 34 years Female with . Treated for pneumonia on 04/26/24. . Comparison: November 29, 2017 FINDINGS: MEDIASTINUM: The cardiac silhouette is not enlarged. LUNGS: No infiltrates, effusions or pneumothorax. OTHER: No free air under the diaphragm. IMPRESSION: No acute cardiopulmonary pathology. Reviewed, dictated and finalized at location A. ROUTE CONTROLLER
== END 2024-05-06 13:53 | disposition home or self-care (01) ==
PROVIDERS: PCP Family Medicine; Visit Provider Family Medicine
DX: R05.9 Cough, unspecified (principal)
CPT/HCPCS: 71046

== ENCOUNTER 2024-09-13 07:19 | Outpatient (CLI) | payer OTHER, SELFPAY ==
--- OUTSIDE RECORDS SUMMARY | 2024-09-13 07:23 | XMS_ITS ---
Author Organization [facility] [employer] [facility] [place] ([address]) Address [address] [place] [address] Care Team Providers Care Tank Truck Engine Mechanic Name Role Phone Tanna Crane Primary Care Provider Viv Leung Unavailable [phone] ZZ-Migration, Provider Unavailable Unavailab le REASON FOR VISIT Multum To [facility] Conversion Encounter Medications Medication SIG (Take, Route, Frequency, Duration) Notes Start Date End Date Status Azelastine HCl 137 MCG/SPRAY 2 spray(s) intranasally 2 times a day for 30 days Active Fluticasone Propionate 50 MCG/ACT 1 spray(s) in each nostril twice a day for 30 days Active NASAL WASHES N/A DIRECTED INTRANASALLY NEEDED for 30 DAYS *Please review for potential replacement for e-prescription and drug interaction check* Active Azelastine HCl 137 MCG/SPRAY 2 spray(s) intranasally 2 times a day for 30 days Active Cetirizine HCl 10 MG 1 tab(s) orally once a day for 30 days Active Encounters Encounter Location Date Provider Diagnosis [facility] - [address] [address] 10/28/2023 Provider ZZ-Migration Allergic rhinitis due to pollen J30.1 Assessments Encounter Date Diagnosis (ICD Code) Assessment Notes Treatment Notes Treatment Clinical Notes Section Notes 10/28/2023 Allergic rhinitis due to pollen (ICD-10 - J30.1) Plan Of Treatment Medication Medication Name Sig Start Date Stop Date Notes Fluticasone Propionate 50 MCG/ACT 1 spray(s) in each nostril twice a day for 30 days NASAL WASHES N/A DIRECTED INTRANASALLY NEEDED for 30 DAYS *Please review for potential replacement for e-prescription and drug interaction check* Azelastine HCl 137 MCG/SPRAY 2 spray(s) intranasally 2 times a day for 30 days Cetirizine HCl 10 MG 1 tab(s) orally onc e a day for 30 days Progress Notes * Stella ADAMSON NDOB:1990 (34 yo F)Acc No.[id number]:10/28/2023 Patient: Stella MCNEILL Provider: Vincent Eastman :1990 A ge:33 Y S ex:Female Date:10/28/2023 Address:[facility] [address], [facility] Pcp:Tanna Crane Subjective: * Chief Complaints: [...] * Electronic signature of Bradford UGARTE-Migration on 09/13/2024 at 07:23 AM CDT Sign off status: Pending * Provider: Vincent Eastman Date: 10/28/2023 Generated for Yohan harrison/Juan Luis/Riley on: 09/13/2024 07:23 AM CDT
--- OUTSIDE RECORDS SUMMARY | 2024-09-13 07:24 | XMS_ITS ---
Author Organization [facility] [place] ([address]) Address [address] [place] [address] Care Team Providers Care Natural Foods Clerk Name Role Phone Tanna Crane Primary Care Provider Viv Leung [phone] REASON FOR VISIT ARC follow-up Encounters Encounter Location Date Provider Diagnosis [facility] [address] [place] [address] 02/13/2024 Viv Rodriguez Plan Of Treatment No Information Progress Notes * MINOStella ROSS NDOB:1990 (34 yo F)Acc No.[id number]:02/13/2024 Progress Notes Patient: Stella MCNEILL Provider: RADHA Caputo :1990 A ge:33 Y S ex:Female Date:02/13/2024 Address:[facility] [address] [facility] Pcp:Tanna Crane Subjective: * Chief Complaints: * 1 . ARC follow-up. * Medical History: Objective: * Vitals: Assessment: Plan: * Treatment: * Billing Information: * Visit Code: * Procedure Codes: * Electronic signature of Viv Rodriguez DNP, FNP-C on 09/13/2024 at 07:24 AM CDT Sign off status: Pending * Provider: RADHA Caputo Date: 1 Generated for Printi ng/Faxing/eTransmitting on: 0 09/13/2024 07:24 AM CDT
--- OUTSIDE RECORDS SUMMARY | 2024-09-13 07:24 | XMS_ITS | Clinical Summary ---
Author Organization [facility] Address [address] [place] [phone] Phone Care Team Providers Care Story Editor Name Role Phone Mercedez Lopez MD Primary Care Provider [phone]- [phone] Social History Tobacco Use Types Packs/Day Years Used Date Smoking Tobacco: Never Assessed Comments Unknown Sex and Gender Information Value Date Recorded Sex Assigned at Not on file Legal Sex Female 3:00 PM CDT Gender Identity Not on file Sexual Orientation Not on file Plan of Treatment Health Maintenance Due Date Last Done Comments DTAP/TDAP/TD VACCINES (1 - Tdap) 2011 HEPATITIS B VACCINES (1 of 3 - 19+ 3-dose series) 2011 HPV/Cotest (21-29) 2013 CERVICAL CANCER SCREENING 2022 HPV/Cotest (30-65) 2022 PAP SMEAR 2022 INFLUENZA VACCINE (#1) 2023 HPV VACCINES Aged Out No longer eligi ble based on patient's age to complete this topic Insurance [place] [id number] [facility] OPTIONS PPO [id number] Care Teams Story Editor Relationship Specialty Start Date End Date Mercedez Lopez MD PCP - General Family Practice 09/30/21
--- OUTSIDE RECORDS SUMMARY | 2024-09-13 07:24 | XMS_ITS | Clinical Summary ---
Author Organization [facility] Address [address] [place] [address] Care Team Providers Care Mission Manager Name Role Phone CraneChristh Paula HAMMONDS Primary Care Provider +1- [phone] Source Comments [facility],non-owned Affiliates and Associated Physician Practices is amultiple site organization consisting of ambulatory clinics and hospital sitesin [place], [place], [place] and [place]. This disclosure is being madepursuant to the Care Everywhere program and may not contain all information available regarding this patient. Last updated 18.[facility] Allergies Active Allergy Reactions Criticality Noted Date Comments Mixed Grasses Rash Medium 04/15/2024 Medications * Be aware that medications may not be up to date on this document. Alwaysverify current medications with the patient. vitamin D, ergocalciferol , (Drisdol) 1.25 MG (91265 UT) capsule Take 1 (one) capsule by mouth every 7 days 4 Active famotidine (Pepcid) 40 MG tablet Take 1 (one) tablet by mouth once daily 4 Active hyoscyamine, disintegrating , (Nulev) 0.125 MG tablet Take 1 (one) tablet by mouth 4 times daily as needed after meals/at bedtime for Spasms or GI Upset 4 Active nortriptyline (Pamelor) 10 MG capsule TAKE 1 CAPSULE BY MOUTH AT BEDTIME 90 capsule 3 5 Active nortriptyline (Pamelor) 10 MG capsule Take 1 (one) capsule by mouth at bedtime 30 capsule 08/29/19 25 Discontinued Active Problems Problem Noted Date Diagnosed Date Allergic rhinitis 01/01/2024 Allergic rhinitis due to animal hair and dander 01/01/2024 Allergic rhinitis due to pollen 01/01/2024 Chronic allergic conjunctivitis 01/01/2024 Encounters Date Type Department Care Team Description 08/27/2024 Refill [facility] - GI [address] [place] [address] Luis Miguel Masters MD Refill Request 07/29/[address] [facility] - [address] [place] [address] Luis Miguel Masters MD from Last 3 Months Family History Medical History Relation Name Comments Negative Family History Father Negative Family History Mother Relation Name Status Comments Father Mother Social History Tobacco Use Types Packs/Day Years Used Date Smoking Tobacco: Never Smokeless Tobacco: Never Tobacco Cessation:Counseling Given: Not Answered Alcohol Use Standard Drinks/Week Comments Yes 0 (1 standard drink = 0.6 oz pur e alcohol) rarely Comments Unknown Sex and Gender Information Value Date Recorded Sex Assigned at Not on file Legal Sex Female 4:02 PM GLASS V[employer] BENDING CONVEYOR FEEDER Gender Identity Not on file Sexual Orientation Not on file Last Filed Vital Signs Vital Sign Reading Time Taken Comments Blood Pressure 130/87 04/15/2024 3:40 PM [employer]ASS [employer]ING CONVEYOR FEEDER Pulse 76 04/15/2024 3:40 PM GLASS [employer] BENDING CONVEYOR FEEDER Temperature 36.8 C (98.2 F) 04/15/2024 3:40 PM GLASS [employer] BENDING CONVEYOR FEEDER Respiratory Rate 16 03/13/2017 2:59 PM CDT Oxygen Saturation 100% 04/15/2024 3:40 PM GLASS V[employer] BENDING CONVEYOR FEEDER Inhaled Oxygen Concentration - - Weight 109.9 kg (242 lb 3.2 oz) 04/15/2024 3:40 PM GLASS [employer] BENDING CONVEYOR FEEDER Height 162.6 cm (5' 4 ) 04/15/2024 3:40 PM GLASS VIAL BENDING CONVEYOR FEEDER Body Mass Index 41.57 04/15/2024 3:40 PM GLASS VIAL BENDING CONVEYOR FEEDER Plan of Treatment Upcoming Encounters Date Type Department Care Team (Late st Contact Info) Description 10/14/2024 3:30 PM CDT Office Visit [facility] - [address] [facility] [place] [address] Health Maintenance Due Date Last Done Comments PAP SMEAR 1990 HIV SCREENING 2007 HEPATITIS C SCREENING 03/18/2010 DTAP/TDAP/TD VACCINES (1 - Tdap) 2011 HEPATITIS B VACCINE (1 of 3 - 19+ 3-dose series) 2011 COVID-19 VACCINE (1 - 2023-2 5 season) 2024 DEPRESSION SCREENING 05/15/2024 INFLUENZA VACCINE (Season Ended) 2025 ZOSTER VACCINE (1 of 2) 2042 HIB VACCINE Aged Out No longer eligi ble based on patient's age to complete this topic HPV VACCINE Aged Out No longer eligi ble based on patient's age to complete this topic MENINGOCOCCAL (Group B) VACC INE SHARED DECISION-MAKING Aged Out No longer eligibl e based on patient's age to complete this topic MENINGOCOCCAL GROUPS A/C/Y/W VACCINE Aged Out No longer eligible b ased on patient's age to complete this topic PNEUMOCOCCAL VACCINE Aged Out No long er eligible based on patient's age to complete this topic Goals Goal Patient Goal Type Associated Problems Recent Progress Patient-Stated? Author Medication Management General On track( 024 3:36 PM GLASS [employer] BENDING CONVEYOR FEEDER) Jessica Camacho, RN Note: Expected end date:Ongoing Interventions: Take all medications as prescribed Let your doctor know right away about any changes in your medications Make sure to request a refill of your medication at least one week prior to your last dose Insurance [facility] Care Teams Mission Manager Relationship Specialty Start Date End Date Tanna Crane DO [address] [facility] [address] [place] [address] PCP - General Family Medicine 01/01/24
--- OUTSIDE RECORDS SUMMARY | 2024-09-13 07:24 | XMS_ITS | Patient Health Record ---
Author Organization [facility] [place] ([address]) Address [address] [facility] [address] [place] [address] Care Team Providers Care Drum Stock Clerk Name Role Phone Tanna Crane Primary Care Provider UnavailViv Galvez Unavailable [phone] [employer], Provider Unavailable Unavailab le Allergies No Known Allergies Reason For Referral No Information Medications Medication SIG (Take, Route, Frequency, Duration) Notes Start Date End Date Status CETIRIZINE 10 mg 1 tab(s) orally once a day for 30 days Active Azelastine HCl 137 MCG/SPRAY 2 spray(s) intranasally 2 times a day for 30 days Active FLUTICASONE NASAL 50 mcg/inh 1 spray(s) in each nostril twice a day for 30 days Active Fluticasone Propionate 50 MCG/ACT 1 spray(s) in each nostril twice a day for 30 days Active AZELASTINE NASAL 137 mcg/inh 2 spray(s) intranasally 2 times a day for 30 days Active AZELASTINE NASAL 137 mcg/inh 2 spray(s) intranasally 2 times a day for 30 days Active NASAL WASHES N/A DIRECTED INTRANASALLY NEEDED for 30 DAYS *Please review for potential replacement for e-prescription and drug interaction check* Active Azelastine HCl 137 MCG/SPRAY 2 spray(s) intranasally 2 times a day for 30 days Active Cetirizine HCl 10 MG 1 tab(s) orally once a day for 30 days Active Social History Tobacco Use: Social History Observation Description Date Details (start date - stop date) Never Smoker NA - NA Smoking Smart Form: Question Answer Notes Are you a: never smoker Problems Problem Type SNOMED Code ICD Code Onset Dates Problem Status W/U Status Risk Notes Problem Chronic allergic conjunctivitis (78129984) Other chronic allergic conjunctivitis (H10.45) Active confirmed Problem Allergic rhinitis caused by pollen (disorder) (78619039) Allergic rhinitis due to pollen (J30.1) Active confirmed Problem Allergic rhinitis (45885233) Other allergic rhinitis (J30.89) Active confirmed Problem Allergic rhinitis caused by pollen (disorder) (87650249) Allergic rhinitis due to pollen (J30.1) Active confirmed Problem Allergic rhinitis caused by animal hair and dander (711698216806746) Allergic rhinitis due to animal (cat) (dog) hair and dander (J30.81) Active confirmed Encounters Encounter Location Date Provider Diagnosis [address] [address] 10/28/2023 Provider Gt Allergic rhinitis due to pollen J30.1 Assessments Encounter Date Diagnosis (ICD Code) Assessment Notes Treatment Notes Treatment Clinical Notes Section Notes 10/28/2023 Allergic rhinitis due to pollen (ICD-10 - J30.1) Plan Of Treatment No Information Insurance Providers Payer Name Payer Address Payer Phone Subscriber Number Group Number Insured Name Patient Relationship to Insured Coverage Start Date Coverage End Date R [address] [address] [place], [place] [id number] Stella Dillon Self - patient is the insured Medical (General) History Surgical History Surgery Date(Month/Year) DNC 09/21/2017 08/22/2018 04/12/2022 Hospitalization History Reason Date(Month/Year) 04/11/2022 08/22/2018
--- OUTSIDE RECORDS SUMMARY | 2024-09-13 07:25 | XMS_ITS ---
Author Organization Formerly [facility] [employer] [place] ([address]) Address [address] [place] [address] Care Team Providers Care Cardiology Coordinator Name Role Phone Tanna Crane Primary Care Provider Viv Leung Unavailable [phone] Allergies No Known Allergies REASON FOR VISIT ARC follow-up: Nasal congestion, drainage and itchy, watery eyes that worsen in the Spring and Fall. Taking Keyonna as-needed., Concerns for allergy to turkey, chicken and egg. Develops belching, abdominal pain, vomiting and diarrhea 24 hours after consumption. Established with GI and diagnosed with lymphoid nodular hyperplasia. Medications Medication SIG (Take, Route, Frequency, Duration) Notes Start Date End Date Status CETIRIZINE 10 mg 1 tab(s) orally once a day for 30 days Active FLUTICASONE NASAL 50 mcg/inh 1 spray(s) in each nostril twice a day for 30 days Active NASAL WASHES N/A as directed intranas ally as needed for 30 days Active AZELASTINE NASAL 137 mcg/inh 2 spray(s) intranasally 2 times a day for 30 days Active AZELASTINE NASAL 137 mcg/inh 2 spray(s) intranasally 2 times a day for 30 days Active Social History Tobacco Use: Social History Observation Description Date Details (start date - stop date) Never Smoker NA - NA Smoking Smart Form: Question Answer Notes Are you a: never smoker Vital Signs Blood pressure systolic 123 mm Hg 08/15/19 24 Blood pressure diastolic 86 mm Hg 024 Respiratory Rate 16 /min 08/15/2023 Height 63.5 in 08/15/2023 Weight 238.2 lbs 08/15/2023 BMI 41.53 kg/m2 08/15/2023 Oximetry 98 % 08/15/2023 Encounters Encounter Location Date Provider Diagnosis [facility] [address] [facility] [address] [place] [address] 08/15/2023 Viv Rodriguez Allergic rhinitis du e to pollen J30.1 ; Allergic rhinitis due to animal (cat) (dog) hair and dander J30.81 ; Other allergic rhinitis J30.89 ; Other chronic allergic conjunctivitis H10.45 ; Abdominal distension (gaseous) R14.0 ; Unspecified abdominal pain R10.9 and Elevated blood-pressure reading, without diagnosis of hypertension R03.0 Assessments Encounter Date Diagnosis (ICD Code) Assessment Notes Treatment Notes Treatment Clinical Notes Section Notes 08/15/2023 Allergic rhinitis due to pollen (ICD-10 - J30.1) Stella clearly suffers from atopic disease based upon our prior skin testing. Accordingly, we have encouraged her medication regimen, discussed nasal washes and allergy-specific avoidance measures. We also discussed adjunctive therapies including subcutaneous, specific allergen immunotherapy as relates to the treatment and prevention of atopic disease. - Stella is not interested in SCIT at this time. She is currently taking Keyonna as needed, which is controlling her symptoms. - Follow-up in 6 months for further evaluation and management 08/15/2023 Allergic rhinitis due to animal (cat) (dog) hair and dander (ICD-10 - J30.81) Follow allergen avoidance, meds and consider SCIT as an adjunctive treatment to current regimen 08/15/2023 Other allergic rhinitis (ICD-10 - J30.89) Follow allergen avoidance, meds and consider SCIT as an adjunctive treatment to current regimen 08/15/2023 Other chronic allergic conjunctivitis (ICD-10 - H10.45) Given ocular signs and symptoms I encouraged allergy avoidance measures and meds as above. If symptoms persist, consider adding additional medications including intraocular antihistamine/mast cell stabilizer, PRN and consider SCIT as an adjunctive measure 08/15/2023 Abdominal distension (gaseous) (ICD-10 - R14.0) Stella presented to her initial visit with complaints of abdominal pain, sulfur burps, nausea and vomiting that occurs approximately 24 hours after consumption of chicken, turkey and eggs. Symptoms have been ongoing for many years. Of note, symptoms do not occur each time Stella eats these foods. She is now mostly avoidant of turkey, eggs and chicken with reduction of symptoms, however in March symptoms developed without the consumption of these foods. Stella's PCP ordered ImmunoCaps that were negative to egg, did not have work-up for chicken or turkey. Stella also recently established with GI, who has ordered a colonoscopy and EGD. - Discussed last visit that history is not consistent with an IgE-mediated hypersensitivity reaction, more so intolerance. Thoroughly discussed that skin testing is not indicated based on presentation, however performed skin test to chicken, turkey, egg white and egg yolk on patient's request. All showed negative results. - Stella had a biopsy completed with GI that showed lymphonodular hyperplasia. SHe is now slated to see a GI specialist. Discussed that this finding is often seen in children and can be associated with food allergy, however based on Stella's history and prior skin testing, her symptoms are not consistent with an IgE-mediated hypersensitivity reaction. - Discussed journaling for triggers and continuing elimination diet. Consider consult with nutrition. - Continue to follow per GI's recommendations 08/15/2023 Unspecified abdominal pain (ICD-10 - R10.9) See plan above 08/15/2023 Elevated blood-pressure reading, without diagnosis of hypertension (ICD-10 - R03.0) BP elevated today without symptoms of urgency or emergency. Continue serial checks and follow-up with PCP Plan Of Treatment Medication Medication Name Sig Start Date Stop Date Notes CETIRIZINE 10 mg 1 tab(s) orally once a day for 30 days FLUTICASONE NASAL 50 mcg/inh 1 spray(s) in each nostril twice a day for 30 days NASAL WASHES N/A as directed intranas ally as needed for 30 days AZELASTINE NASAL 137 mcg/inh 2 spray(s) intranasally 2 times a day for 30 days Treatment Notes Assessment Notes Allergic rhinitis due to pollen Stella clearly suffers from atopic disease based upon our prior skin testing. Accordingly, we have encouraged her medication regimen, discussed nasal washes and allergy-specific avoidance measures. We also discussed adjunctive therapies including subcutaneous, specific allergen immunotherapy as relates to the treatment and prevention of atopic disease. - Stella is not interested in SCIT at this time. She is currently taking Keyonna as needed, which is controlling her symptoms. - Follow-up in 6 months for further evaluation and management Allergic rhinitis due to ani mal (cat) (dog) hair and dander Follow allergen avoidance, meds and consider SCIT as an adjunctive treatment to current regimen Other allergic rhinitis Follow allergen avoidance, meds and consider SCIT as an adjunctive treatment to current regimen Other chronic allergic conjunctivitis Gi alea ocular signs and symptoms I encouraged allergy avoidance measures and meds as above. If symptoms persist, consider adding additional medications including intraocular antihistamine/mast cell stabilizer, PRN and consider SCIT as an adjunctive measure Abdominal distension (gaseous) Stella presented to her initial visit with complaints of abdominal pain, sulfur burps, nausea and vomiting that occurs approximately 24 hours after consumption of chicken, turkey and eggs. Symptoms have been ongoing for many years. Of note, symptoms do not occur each time Stella eats these foods. She is now mostly avoidant of turkey, eggs and chicken with reduction of symptoms, however in March symptoms developed without the consumption of these foods. Stella's PCP ordered ImmunoCaps that were negative to egg, did not have work-up for chicken or turkey. Stella also recently established with GI, who has ordered a colonoscopy and EGD. - Discussed last visit that history is not consistent with an IgE-mediated hypersensitivity reaction, more so intolerance. Thoroughly discussed that skin testing is not indicated based on presentation, however performed skin test to chicken, turkey, egg white and egg yolk on patient's request. All showed negative results. - Stella had a biopsy completed with GI that showed lymphonodular hyperplasia. SHe is now slated to see a GI specialist. Discussed that this finding is often seen in children and can be associated with food allergy, however based on Stella's history and prior skin testing, her symptoms are not consistent with an IgE-mediated hypersensitivity reaction. - Discussed journaling for triggers and continuing elimination diet. Consider consult with nutrition. - Continue to follow per GI's recommendations Unspecified abdominal pain See plan abov e Elevated blood-pressure read ing, without diagnosis of hypertension BP elevated today without symptoms of urgency or emergency. 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 Taking Keyonna as-needed.Concerns for allergy to turkey, chicken and egg. Develops belching, abdominal pain, vomiting and diarrhea 24 hours after consumption. Established with GI and diagnosed with lymphoid nodular hyperplasia. * HPI: * Introduction: I had the pleasure of seeing Ritchie Adamson, a 33-year-old female without significant past medical history who is returning in consultation with her PCP, Dr. Crane, for ARC follow-up. She is alone for today's visit. Last visit Stella endorsed upper airway symptoms concerning for uncontrolled atopic disease. Skin testing was performed to aeroallergens and showed positive results to multiple seasonal and perennial allergens. She denies daily symptoms, symptoms worsen in the Spring and Fall. She has two cats and two dogs in her home. She has continued taking Keyonna as needed and is satisfied with level of control. A dditionally, Stella presented to her initial visit with concerns of food allergy to chicken, turkey and eggs. When she was with her son in 2017, when she would eat egg white and turkey kilpatrick sandwiches she would develop sulfur burps, abdominal pain, nausea, vomiting and diarrhea approximately 24 hours after consumption. She stopped eating these foods and after her reintroduced them. Sometimes she would eat these foods without issue, while other times she would again develop GI symptoms. Stella has now been avoidant of turkey, chicken and egg for the last 10 months. States that in February she ate turkey dressing, and again 24 hours later developed GI symptoms. She denies associated facial swelling, skin changes, or lower airway symptoms. When symptoms do develop, it is always 24 hours later. She does note that in March she was on vacation in [place] when she developed GI symptoms, however she had not eaten chicken, eggs or turkey. Stella was referred to GI and has established care with GHAZALA Palacios, she underwent an EGD and colonoscopy and was diagnosed with lymphoid nodular hyperplasia. Slated now to see a GI specialist. Today, she reports no fevers, chills, night sweats or other constitutional symptoms. * ROS: A LLERGY: Positive p er the HPI and history, otherwise unremarkable.?runny nose Y es. s cratchy throat Y es. i tchy eyes Y es. s inus congestion Y es. S PECIAL SENSES: Positve for n one. i tching eyes Y es. ? C ONSTITUTIONAL: weight gain Y es. f atigue Y es. P ositive for?none. E NT: epistaxis Y es. s ore throat Y es. s inus pain?Yes. P ositive p er the HPI and history, otherwise unremarkable. R ESPIRATORY: Positive p er the HPI and history, otherwise unremakable.? O PHTHALMOLOGY: seasonal eye sx Y es. P ositive for p er the HPI and history, othewise unremarkable. i tching Y es. s ensitivity to light Y es. w atering Y es. E NDOCRINOLOGY: fatigue Y es. h eat intolerance Y es. P ositive for n one. C ARDIOLOGY: dizziness Y es. P ositive for n one. ? G ASTROENTEROLOGY: nausea Y es. v omiting Y es. d iarrhea Y es. P ositive for n one. U ROLOGY: Positive for n one. D ERMATOLOGY: mole Y es. d ry or sensitive skin Y es. h kevan (urticaria) Y es. P ositive for p er the HPI and history, otherwise unremakable. ? N EUROLOGY: headache Y es. d izziness Y es. P ositive for?none. H EMATOLOGY/LYMPH: Positive for n one. M USCULOSKELETAL: Positive for n one. P SYCHOLOGY: anxiety Y es. P ositive for n one. F EMALE REPRODUCTIVE: sexually active Y es. i nfertility Y es. A ll other review of systems per the HPI and history, othwise unremarkable. * Medical History: * Surgical History: D NC 09/21/2017C-Section 08/22/2018C-section 04/12/2022 * Hospitalization/Major Diagno stic Procedure: P regnancy 08/22/2018Pregnancy 04/11/2022 * Family History: F ather: alive, No. M other: alive, Yes. P aternal Grand Father: No. P aternal Grand Mother: No. M aternal Grand Father: Yes. M aternal Grand Mother: Yes. S iblings: Yes.?Children: Yes. There is no other family history of cancer, CF, diabetes, emphysema or heart disease. * Social History: M arital Status What is your marital status? m arried A lcohol Screening Do you ever drink alcoholic beverages? Y es Number of drinks per occasion: 2 Frequency? M onthly S moking Have you ever smoked tobacco: n ever smoked Additional Findings: Tobacco Non-User N ever used moist powdered tobacco Are you a : n ever smoker S moking Smart Form Are you a: n ever smoker R ecreational drug use Have you ever used recreational drugs? N o D etails on consumption of certain products? Do you regularly consume products with aspartame; Equal or NutraSweet? N o Do you regularly consume products with artificial coloring??Yes Have you ever noticed worsening of your rash with these food items? N o E xercise What kind(s) of exercise do you perform regularly? w alking,cardio How often do you perform this exercise? d aily A re any of the following personal care products containing fragrance, dye or preservatives used regularly? Shampoo: Y es Conditioner: Y es Soap: N o Laundry Detergent: N o Fabric Softener: N o Deodorant: Y es Perfume, cologne, after shave: Y es Air freshners or other scented products: N o Hair coloring dyes or rinses: N o Other: N o O ccupation Are you currenly employed? 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 N o Do you have any pending or planned legal action against your current or former employer which pertains to your medical illness? N o Do you anticipate that your evaluation will be used in any legal action against your current employer or former employer? N o Have you had any job with high exposure to fumes, chemicals, dust or other noxious substances? N o Are you currently a student? N o E nvironmental History Living environment: p rivate home Where is the home located? [place] Age of home: 2 0 How long have you lived there? 2 -4 years How many people live in the home? 4 H ome description Basement: Y es Any water damage in basement? N o Smokers in the home? N o Smokers outside the home? N o Air Conditioning? Y es Central Air? Y es Forced air heating? Y es Gas or electric? g as Fireplace? Y es Used how often? w inter months only Wood burning stove? N o Do you vacuum the home? Y es Air purification systems? N o Pillow and mattress dust-proof encasings? Y es Do you use a humidifier? N o Do you own any pets? Y es What kind(s)? (click all that apply) c ats,dog Where do your pets sleep? a nywhere in the house Fabric softeners used? N o Plants in the home? N o Is there carpeting in your bedroom? Y es Age of carpet? 3 Do you have [id number]-km-ruoi carpeting? N o What is the age of your mattress (years)? 3 What material(s) are used to manufacture your bedding and pillow? n atural fiber (e.g. cotton) What is the age of your pillow (years)? 2 What material are your bedding items made of? n atural fiber (e.g. cotton) Do you sleep with quilts or blankets or a duvet? Y es What material? n atural fiber (e.g. cotton) How many cats? 1 How many dogs? 2 * Medications: T akingCetirizine 10 mg tablet 1 tab(s) orally once a day Nasal Washes N/A 1 quart of sterilized tap water or distilled water, 1 tsp NaCl, 1 pinch of baking soda as directed intranasally as needed fluticasone nasal 50 mcg/inh spray 2 spray(s) in each nostril BID azelastine nasal 137 mcg/inh spray 2 spray(s) intranasally 2 times a day Medication List reviewed and reconciled with the patientTaking Cetirizine 10 mg tablet 1 tab(s) orally once a day Taking Nasal Washes N/A 1 quart of sterilized tap water or distilled water, 1 tsp NaCl, 1 pinch of baking soda as directed intranasally as needed Taking fluticasone nasal 50 mcg/inh spray 2 spray(s) in each nostril BID Taking azelastine nasal 137 mcg/inh spray 2 spray(s) intranasally 2 times a day Medication List reviewed and reconciled with the patient * Allergies: N .K.D.A.no[Allergies Verified] Objective: * Vitals: B P:123/86mm Hg, HR:79/min, RR:16/min, Pulse Oximetry:98%, Ht: 63.5 in, Wt: 238.2 lbs, BMI:41.53Index. * Examination: G eneral examination: General appearance: p leasant, well-developed, well-nourished, female, in no apparent distress, speaking in full sentences. HEENT: c onjunctiva are normal bilaterally, TMs without evidence of acute infection, posterior oropharynx is clear without exudates, erythema on pharyngeal wall, no exudates, tonsils are present, no tongue swelling, and uvula is midline. Oral cavity: n ormal, no lesions. Breasts : n ot performed. Heart: R RR, S1-S2, no murmurs, no rubs, no gallops. Lungs: c lear to auscultation in all lung panda, no wheezes or crackles. Neurologic exam: u nremarkable. Back: n ormal. Genitalia: n ot performed. Assessment: * Assessment: 1. A llergic rhinitis due to pollen - J30.1 (Primary) 2 . A llergic rhinitis due to animal (cat) (dog) hair and dander - J30.81 3 . O ther allergic rhinitis - J30.89 4 . O ther chronic allergic conjunctivitis - H10.45 5 . A bdominal distension (gaseous) - R14.0?6. U nspecified abdominal pain - R10.9 7 . E levated blood-pressure reading, without diagnosis of hypertension - R03.0 Plan: * Treatment: 2. A llergic rhinitis due to animal (cat) (dog) hair and dander Notes: Follow allergen avoidance, meds and consider SCIT as an adjunctive treatment to current regimen 3. O ther allergic rhinitis Notes: Follow allergen avoidance, meds and consider SCIT as an adjunctive treatment to current regimen 4. O ther chronic allergic conjunctivitis Notes: Given ocular signs and symptoms I encouraged allergy avoidance measures and meds as above. If symptoms persist, consider adding additional medications including intraocular antihistamine/mast cell stabilizer, PRN and consider SCIT as an adjunctive measure 5. A bdominal distension (gaseous) Notes: Stella presented to her initial visit with complaints of abdominal pain, sulfur burps, nausea and vomiting that occurs approximately 24 hours after consumption of chicken, turkey and eggs. Symptoms have been ongoing for many years. Of note, symptoms do not occur each time Stella eats these foods. She is now mostly avoidant of turkey, eggs and chicken with reduction of symptoms, however in March symptoms developed without the consumption of these foods. Stella's PCP ordered ImmunoCaps that were negative to egg, did not have work-up for chicken or turkey. Stella also recently established with GI, who has ordered a colonoscopy and EGD. - Discussed last visit thathistory is not consistent with an IgE-mediated hypersensitivity reaction, moreso intolerance. Thoroughly discussed that skin testing is not indicated based on presentation, however performed skin test to chicken, turkey, egg white and egg yolk on patient's request. All showed negative results. - Stella had a biopsy completed with GI that showed lymphonodular hyperplasia. SHe is now slated to see a GI specialist. Discussed that this finding is often seen in children and can be associated with food allergy, however based on Stella's history and prior skin testing, her symptoms are not consistent with an IgE-mediated hypersensitivity reaction. - Discussed journaling for triggers and continuing elimination diet. Consider consult with nutrition. - Continue to follow per GI's recommendations 6. U nspecified abdominal pain Notes: See plan above 7. E levated blood-pressure reading, without diagnosis of hypertension Notes: BP elevated today without symptoms of urgency or emergency. Continue serial checks and follow-up with PCP * Procedure Codes: 0 0028 Viv Rodriguez - Incident-[id number] DOC MEDS VERIFIED W/PT OR RE * Preventive Medicine: Counseling: D iet a s tolerated. E xercise C ontinue activity as usual. M edication instruction: N kana steroid instruction: avoid septum, Watch for side effects of prescribed medications. E ducation 2: O ur staff discussed the appropriate allergen avoidance measures and medication utilization including upper airway hygiene with daily nasal washes given the patient's clinical status and diagnoses, SCIT EDUCATION:, Discussed allergy immunotherapy including the relative risks, benefits and alternatives to this treatment as an adjunctive measure to current therapy, Allergy Immunotherapy: Risks: bleeding, infection, allergic reaction, anaphylaxis = severe allergic reaction that can cause ; Benefits: reduced need for medications, improved symptoms, disease modification. Alternatives: watch/wait, change medication regimen, improve allergy avoidance measures, Our staff discussed the warning signs of anaphylaxis and the indications to use self-injectable epinephrine and seek urgent or emergent care. C are goal follow up plan BMI management provided Y es Above Normal BMI Follow-up D ietary management education, guidance, and counseling B P Management: PRE-HYPERTENSIVE FOLLOW-UP PLAN: F ollow-up 4-6 days LIFESTYLE RECOMMENDATION: L ifestyle education * Follow Up: 6 Months (Reason: Evaluation and Management) * Billing Information: * Visit Code: 84068 Office Visit, Est Pt., Level 3. Modifiers: 25 * Procedure Codes: 77825 Viv Rodriguez - Incident-to. [id number] DOC MEDS VERIFIED W/PT OR RE. * Electronically co-signed by Jacob Bhakta MD, FAAAAI on 09/16/2023 at 08:49 PM CDT Sign off status: Completed true * Provider: RADHA Caputo-C Date: 08/15/2023 Generated for Yohan harrison/Juan Luis/eTransmitting on: 0 09/13/2024 07:24 AM CDT History and Physical Notes * HPI (History of Present Illness) Category Sub-Category Detail Notes Category Not es *Introduction I had the pleasure o f seeing Stella Adamson, a 33-year-old female without significant past medical history who is returning in consultation with her PCP, Dr. Crane, for [facility] follow-up. She is alone for today's visit. Last visit Stella endorsed upper airway symptoms concerning for uncontrolled atopic disease. Skin testing was performed to aeroallergens and showed positive results to multiple seasonal and perennial allergens. She denies daily symptoms, symptoms worsen in the Spring and Fall. She has two cats and two dogs in her home. She has continued taking Keyonna as needed and is satisfied with level of control. Additionally, Stella presented to her initial visit with concerns of food allergy to chicken, turkey and eggs. When she was with her son in 2017, when she would eat egg white and turkey kilpatrick sandwiches she would develop sulfur burps, abdominal pain, nausea, vomiting and diarrhea approximately 24 hours after consumption. She stopped eating these foods and after her reintroduced them. Sometimes she would eat these foods without issue, while other times she would again develop GI symptoms. Stella has now been avoidant of turkey, chicken and egg for the last 10 months. States that in February she ate turkey dressing, and again 24 hours later developed GI symptoms. She denies associated facial swelling, skin changes, or lower airway symptoms. When symptoms do develop, it is always 24 hours later. She does note that in March she was on vacation in [place] when she developed GI symptoms, however she had not eaten chicken, eggs or turkey. Stella was referred to GI and has established care with GHAZALA Palacios, she underwent an EGD and colonoscopy and was diagnosed with lymphoid nodular hyperplasia. Slated now to see a GI specialist. Today, she reports no fevers, chills, night sweats or other constitutional symptoms Examination Category Sub-Category Detail Notes Category Not es General examination HEENT: conjunctiva are normal bilaterally, TMs without evidence of acute infection, posterior oropharynx is clear without exudates, erythema on pharyngeal wall, no exudates, tonsils are present, no tongue swelling, and uvula is midline Heart: RRR, S1-S2, no murmu rs, no rubs, no gallops Lungs: clear to auscultatio n in all lung panda, no wheezes or crackles General appearance: pleasant, well-devel oped, well-nourished, female, in no apparent distress, speaking in full sentences Neurologic exam: unremarkable Oral cavity: normal, no lesions Breasts : not performed Back: normal Genitalia: not performed
[2024-09-13 08:07] LABS: Uric Acid 4.9 mg/dL (2.5-7.5)
== END 2024-09-13 07:20 | disposition home or self-care (01) ==
LOC: ANHLAB 07:21
PROVIDERS: PCP Family Medicine; Visit Provider Family Medicine
DX: M25.40 Effusion, unspecified joint (principal)
CPT/HCPCS: 36415; 84550

== ENCOUNTER 2024-09-14 08:21 | Emergency (ER) | payer OTHER, SELFPAY ==
[2024-09-14 08:31] VITALS: BP 132/78; PULSE 94; RESP 16; TEMP 36.3; O2SAT 99
--- NOTE | 2024-09-14 08:36 | ED_ITS ---
HPI - Ear Problem General Chief complaint: Ear Stated complaint: right ear painful Time Seen by Provider: 09/14/24 08:35 Source: patient Mode of arrival: ambulatory Limitations: no limitations History of Present Illness HPI Narrative: Stella is a 34-year-old female patient presenting to the clinic today with complaints of right ear pain since around 4:00 a.m. this morning. States she has had a little bit of a sore throat and some nasal congestion this week. Denies any fevers, chills, body aches. Related Data Home Medications ?Medication ?Instructions ?Recorded ?Confirmed ?Last Taken ?Type amitriptyline 10 mg tablet 10 mg PO 04/24/24 04/24/24 Unknown History norethindrone acetate 1.5 1 tablet PO DAILY 09/11/24 09/11/24 Unknown History mg-ethinyl estradiol 30 mcg tablet (Aurovela) Allergies Allergy/AdvReac Type Severity Reaction Status Date / Time No Known Allergies Allergy Unknown Verified 09/11/24 10:20 Review of Systems Review of Systems: Pertinent positives per HPI. Patient denies any fever, chills, rash, headache, visual changes, dizziness, cough, shortness of breath, chest pain, palpitations, nausea, vomiting, diarrhea, constipation, abdominal pain, or any urinary issues. [facility] Past Medical History Medical History Obesity GERD (gastroesophageal reflux disease) Belching Nausea and vomiting Abdominal pain Diarrhea Chromosomal translocation Robertsonian translocation delivery delivered Secondary oligomenorrhea Anxiety PCOS (polycystic ovarian syndrome) Diagnosed 2016 Surgical History Surgical History History of tubal ligation Previous section 08/22/2018, 04/12/2022 Family History Family History Father Hypertension Mother Alive and well Father Hypertension Other PCOS (polycystic ovarian syndrome) Social History Social History Social History: Smoking status: Never smoker Tobacco type: cigarettes Second hand tobacco smoke exposure: No Alcohol intake: current Drinks per week: 0 Alcohol use details: Stella reports using alcohol once or twice a month Substance use: never Substance use type: does not use Do You Feel Safe in your Home?: Yes Lack of Transportation: No Lack of Food: Never True Current Housing: I Have Housing Concerned About Future Housing: No Difficulty Paying Gas/Electric Bills: No Difficulty Paying for Meds: No Currently Unemployed: No Education: Bachelor's Degree Difficulty w/ Childcare or Family Care: No Living arrangements: with family Occupation/Education: occupation Gender identity (if verbalized by the patient): Female Sexual Orientation (if Verbalized by the Patient): Straight or Heterosexual Spiritual care concerns: No Comments At the time of my signature, I reviewed and agree with the nursing past medical, surgical, social, and family history. There is no relevant family history pertinent to the patient complaint. Exam Narrative: General: Well-developed, well nourished, in no apparent distress Head: Normocephalic, atraumatic Eyes: Pupils equally round and reactive to light bilaterally, EOM intact, sclera and conjunctive clear, no discharge, lids normal Ears: Left TMs intact and clear, right TM intact, bulging, red, ear canals clear, no drainage, grossly hearing normal. Nose: Nares patent, no discharge, no inflammation, no sinus tenderness. Mouth: Oral pharynx without lesions or masses, good dentition, MMM. Neck: Supple, trachea midline, no enlargement of anterior or posterior cervical nodes, no thyroid masses or goiter palpable. Cardio: Regular rate and rhythm, s1 and s2 normal, no murmur appreciated. Resp: Clear to auscultation bilaterally, no rhonchi, rales, wheezing or rubs Course Course Emergency Course: Portions of this record may have been created with voice recognition software. Level of Care: Express Care Visit Vital Signs Vital signs: Vital Signs Temperature 36.3 C L 09/14/24 08:31 Pulse Rate 94 09/14/24 08:31 Respiratory Rate 16 09/14/24 08:31 Blood Pressure 132/78 09/14/24 08:31 Pulse Oximetry 99 09/14/24 08:31 Oxygen Delivery Room Air 09/14/24 08:31 Temperature 36.3 C L 09/14/24 08:31 Pulse Rate 94 09/14/24 08:31 Respiratory Rate 16 09/14/24 08:31 Blood Pressure 132/78 09/14/24 08:31 Pulse Oximetry 99 09/14/24 08:31 Oxygen Delivery Room Air 09/14/24 08:31 Vital signs reviewed Medical Decision Making MDM Narrative Medical decision making narrative: At the time of visit patient is resting comfortably on the exam table. Patient appears to be nontoxic. Plan: I suspect patient has right otitis media. Prescription for amoxicillin was sent to pharmacy. Supportive measures were discussed with the patient and they voiced understanding discharge instructions and agrees to treatment plan. Return precautions reviewed Differential Diagnosis Differential Diagnosis: Otitis media, otitis sternum eustachian tube dysfunction, cerumen impaction, upper respiratory infection, serous otitis Vital Signs Vital Signs: Vital Signs Temperature 36.3 C L 09/14/24 08:31 Pulse Rate 94 09/14/24 08:31 Respiratory Rate 16 09/14/24 08:31 Blood Pressure 132/78 09/14/24 08:31 Pulse Oximetry 99 09/14/24 08:31 Oxygen Delivery Room Air 09/14/24 08:31 Temperature 36.3 C L 09/14/24 08:31 Pulse Rate 94 09/14/24 08:31 Respiratory Rate 16 09/14/24 08:31 Blood Pressure 132/78 09/14/24 08:31 Pulse Oximetry 99 09/14/24 08:31 Oxygen Delivery Room Air 09/14/24 08:31 Discharge Plan Discharge Clinical Impression: Acute right otitis media Patient Disposition: Home Condition: Stable Instructions: Antibiotic Form, Ear Infection (ED) Additional Instructions: Take prescription medications only as prescribed-amoxicillin Increase fluids and stay well hydrated Tylenol/motrin for pain/fever Flonase and OTC antihistamines as directed Vicks vapor rub to open sinuses Sinus rinses for congestion Cepacol spray, cough drops, throat lozenges, warm tea with honey/lemon, gargle salt water to soothe throat BRAT diet for diarrhea Clear liquids x 24 hours then advance as tolerated for nausea/vomiting Go to the ED if you develop a worsening in your condition- high fever not controlled by Tylenol or Motrin, dehydration, weakness, lethargy, shortness of breath, or chest pain. Follow up with your PCP in 3-5 days if symptoms persist. Patient Language: Serbian Prescriptions: New amoxicillin 875 mg tablet 875 mg PO Q12H 7 Days Qty: 14 0RF No Action amitriptyline 10 mg tablet 10 mg PO norethindrone ac-eth estradiol [Aurovela 1.5/30 (21)] 1.5-30 mg-mcg tablet 1 tablet PO DAILY ketoconazole 2 % cream 1 applic topical BID 56 Days Qty: 60 1RF colchicine 0.6 mg tablet 0.6 mg PO .COMPLEX Qty: 9 0RF Rx Instructions: Take 2 tabs by mouth at the first sign of flare, followed by 0.6 mg after 1 hour. Take 1 tab twice daily by mouth starting on Day 2 until symptoms resolve Follow-up/Referrals: Tanna Crane DO [Primary Care Provider] - Time of Disposition: 08:35 Quality NIHSS Nursing Documentation ED NIHSS nursing documentation: reviewed/agree
== END 2024-09-14 08:39 | disposition home or self-care (01) ==
PROVIDERS: Emergency Provider Nurse Practitioner Family; PCP Family Medicine
DX: H66.91 Otitis media, unspecified, right ear (principal); K21.9 Gastro-esophageal reflux disease without esophagitis; E28.2 Polycystic ovarian syndrome; Q99.8 Other specified chromosome abnormalities; E66.9 Obesity, unspecified; Z68.37 Body mass index [BMI] 37.0-37.9, adult
CPT/HCPCS: 99213; G0463

== ENCOUNTER 2025-01-06 01:06 | Day surgery (SDC) | payer OTHER, SELFPAY ==
--- OUTSIDE RECORDS SUMMARY | 2023-10-28 16:30 | XMS_ITS ---
Author Organization [facility] [place] ([address]) Address [address] [place] [address] Care Team Providers Care Cashier Associate Name Role Phone Tanna Crane Primary Care Provider UnavailViv Galvez Unavailable [phone] ZZ-Migration, Provider Unavailable Unavailab le REASON FOR VISIT [facility] To [facility] Conversion Encounter Medications Medication SIG (Take, Route, [...] Encounter Location Date Provider Diagnosis [place] - [place] [place] [address] 10/28/2023 Provider ZZ-Migration Allergic rhinitis due to [...] * Stella ADAMSON NDOB:1990 (34 yo F)Acc No.[id number]:10/28/2023 Patient: Stella MCNEILL Provider: Vincent Eastman :1990 A ge:33 Y S ex:Female Date:10/28/2023 Address:[address] [place], [place] [address], [facility] Pcp:Tanna Crane Subjective: * Chief Complaints: * [...] * Electronic signature of Bradford UGARTE-Migration on 01/06/2025 at 01:08 AM CDT Sign off status: Pending * Provider: Vincent Eastman Date: 10/28/2023 Generated for Yohan harrison/Juan Luis/Riley on: 01/06/2025 01:08 AM CDT
--- OUTSIDE RECORDS SUMMARY | 2024-02-13 12:30 | XMS_ITS ---
Author Organization [facility] [place] ([address]) Address [address] [place] [address] Care Team Providers Care Head Of Maintenance Name Role Phone Tanna Crane Primary Care Provider Viv Leung [phone] REASON FOR VISIT ARC follow-up Encounters Encounter Location Date Provider Diagnosis [facility] [address] [place] [address] 02/13/2024 Viv Rodriguez Plan Of Treatment No Information Progress Notes * MINOStella ROSS NDOB:1990 (34 yo F)Acc No.[id number]:02/13/2024 Progress Notes Patient: Stella MCNEILL Provider: RADHA Caputo :1990 A ge:33 Y S ex:Female Date:02/13/2024 Address:[facility] [address], [facility] Pcp:Tanna Crane Subjective: * Chief Complaints: * 1 . ARC follow-up. * Medical History: Objective: * Vitals: Assessment: Plan: * Treatment: * Billing Information: * Visit Code: * Procedure Codes: * Electronic signature of iVv Rodriguez DNP, FNP-C on 01/06/2025 at 01:09 AM CDT Sign off status: Pending * Provider: RADHA Caputo Date: 1 Generated for Printi ng/Faxing/eTransmitting on: 0 01/06/2025 01:09 AM CDT
[2024-12-31 10:21] VITALS: BMI 40.8
--- NOTE | 2024-12-31 10:28 | PC.NURSE ---
Report to the Outpatient Waiting Room, entrance under the green pavilion located off [facility], at time __0745__ on date __01/06/25__. Planned Procedure Time: _0945__.? Time changes happen often and if your time is changed the preop area will call you the afternoon before. - You and your visitor will be asked to self-screen and do not enter if you have any COVID symptoms. Please call surgeon if you need to reschedule. - A mask is optional within the hospital at this time. Patients may have clear liquids (water, carbonated beverages, clear teas, apple juice) until 3 hours prior to surgery with a maximum of 20 ounces. - No food from midnight until time of surgery and no smoking, or chewing tobacco (or any form of nicotine). No chewing gum, candy or mints. Take only the following medications with a SIP of water on the morning of surgery: __amitriptyline and control___ DO NOT STOP ANY OF YOUR OTHER PRESCRIPTION MEDICATIONS PRIOR TO SURGERY EXCEPT THE FOLLOWING Hold all vitamins and supplements for 3 days per anesthesiologist. Medications to discontinue per physician ___hold phentermine AM of surgery____ Please no make-up, nail swedish, hairspray, perfume, deodorant, or body powder the day of surgery.? No jewelry (including any body piercings) or valuables the day of surgery, leave them at home.?Please take a shower or bath the night before, or the morning of, surgery with an antibacterial soap.?Wear comfortable, loose fitting clothing.? - Jewelry must be removed prior to entering the operating room.? Rings and piercings that are not removed may be cut off. - The hospital will not accept responsibility for valuables.? - Please leave all valuables, including medications, at home the day of surgery. If you are going home after surgery, a licensed production truck driver must drive you home.? - NO public transportation without another adult if you receive anesthesia. - We recommend that an adult stay with you for 24 hours following discharge. - We also recommend that you do not drive, make important decision, drink alcoholic beverages, or take any drugs that were not prescribed by your health care provider for at least 24 hours after your discharge time. Follow any additional instructions given to you from your surgeon. Telephone instructions given to _Stella_and asked if any additional questions and then verbalized understanding. Patient advised to call surgeon office or pre surgery nurse liaison [phone] if any additional questions.
--- OUTSIDE RECORDS SUMMARY | 2025-01-06 01:09 | XMS_ITS | Clinical Summary ---
Author Organization [facility] [employer] Address [address] [place] [address] Care Team Providers Care Body Shop Floorperson Name Role Phone Tanna Crane DO Primary Care Provider [phone] Source Comments [facility],non-owned Affiliates and Associated Physician Practices is amultiple site organization consisting of ambulatory clinics and hospital sitesin [place], [place], [place] and [place]. This disclosure is being madepursuant to the Care Everywhere program and may not contain all information available regarding this patient. Last updated 18.[facility] [employer] Allergies Active Allergy Reactions Criticality Noted Date Comments Mixed Grasses Rash Medium 04/15/2024 Medications * Be aware that medications may not be up to date on this document. Alwaysverify current medications with the patient. Aurovela 24 FE 1-20 MG-MCG(24) tablet Take 1 (one) tablet by mouth once daily 09/20/2024 Active phentermine (Adipex-P) 37.5 MG tablet Take 1 (one) tablet by mouth once daily 10/03/2024 Active nortriptyline (Pamelor) 10 MG capsuleIndicati ons:Generalized abdominal pain Take 1 (one) capsule by mouth at bedtime 90 capsule 3 10/14/2024 Active Active Problems Problem Noted Date Diagnosed Date Allergic rhinitis 01/01/2024 Allergic rhinitis due to animal hair and dander 01/01/2024 Allergic rhinitis due to pollen 01/01/2024 Chronic allergic conjunctivitis 01/01/2024 Encounters Date Type Department Care Team Description 10/14/2024 3:30 PM CDT Office Visit [facility] [address] [place] [address] Sharmin Reis MD Generalized abdominal pain (Primary Dx) 10/14/2024 Travel from Last 3 Months Family History Medical [...] on file 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 Gender Identity Not on file Sexual Orientation Not on file Last Filed Vital Signs Vital Sign Reading Time Taken Comments Blood Pressure 125/81 10/14/2024 3:32 PM CDT Pulse 101 10/14/2024 3:32 PM CDT Temperature 36.6 C (97.8 F) 10/14/2024 3:22 PM CDT Respiratory Rate 16 03/13/2017 2:59 PM CDT Oxygen Saturation 99% 10/14/2024 3:22 PM CDT Inhaled Oxygen Concentration - - Weight 114.1 kg (251 lb 9.6 oz) 10/14/2024 3:22 PM CDT Height 162.6 cm (5' 4) 10/14/2024 3:22 PM CDT Body Mass Index 43.19 10/14/2024 3:22 PM CDT Plan of Treatment Upcoming Encounters Date Type Department Care Team (Late st Contact Info) Description 10/20/2025 3:30 PM CDT Office Visit [facility] [address] [place] [address] Health Maintenance Due Date Last Done Comments HIV SCREENING 2007 HEPATITIS C SCREENING 03/18/2010 DTAP/TDAP/TD VACCINES (1 - Tdap) 2011 HEPATITIS B VACCINE (1 of 3 - 19+ 3-dose series) 2011 PAP SMEAR 2013 HPV VACCINE (1 - 3-dose SCDM series) 2019 COVID-19 VACCINE (2023-2 5 season) 2024 DEPRESSION SCREENING 05/15/2024 INFLUENZA VACCINE (#1) 2025 ZOSTER VACCINE (1 of 2) 2042 [...] Patient-Stated? Author Medication Management General On track( 025 4:01 PM CDT) Jessica Camacho, RN Note: Expected end date:Ongoing Interventions: Take all medications as prescribed Let your doctor know right away about any changes in your medications Make sure to request a refill of your medication at least one week prior to your last dose Insurance [facility] Member Subscriber Plan / Payer (Ef fective 2015-Present) Name:Shlomo Adamson Relation to Subscriber:Self Name:SHLOMO ADAMSON Payer ID:[id number] (NAIC) Type:PPO Address: [address] [place] [address] [facility] Care Teams Body Shop Floorperson Relationship Specialty Start Date End Date Tanna Crane DO [address] [place] [address] PCP - General Family Medicine 01/01/24
--- OUTSIDE RECORDS SUMMARY | 2025-01-06 01:09 | XMS_ITS | Clinical Summary ---
Author Organization [facility] Address [address] [place] [phone] Phone Care Team Providers Care Journeyman Millwright Name Role Phone Mercedez Lopez MD Primary Care Provider [phone]- [phone] Social History Tobacco Use Types Packs/Day Years [...] (1 of 3 - 19+ 3-dose series) 12/2010 HPV/Cotest (21-29) 2013 HPV VACCINES (1 - 3-dose SCDM series) 2019 CERVICAL CANCER SCREENING 2022 HPV/Cotest (30-65) 2022 PAP SMEAR 2022 INFLUENZA VACCINE (#1) [address] [id number] [facility] OPTIONS PPO [id number] Care Teams Journeyman Millwright Relationship Specialty Start Date End Date Mercedez Lopez MD PCP - General Family Practice 09/30/21
--- OUTSIDE RECORDS SUMMARY | 2025-01-06 01:09 | XMS_ITS | Patient Health Record ---
Author Organization [facility] [email or web address] [place] ([address]) Address [address] [facility] [address] [place] [address] Care Team Providers Care Websphere Administrator Name Role Phone Tanna Crane Primary Care Provider Viv Leung Unavailable [phone] Allergies No Known Allergies Reason For Referral No Information Medications Medication SIG (Take, Route, Frequency, Duration) Notes Start Date End Date Status CETIRIZINE 10 mg 1 tab(s) orally once a day; Duration: 30 days Active Azelastine HCl 137 MCG/SPRAY 2 spray(s) intranasally 2 times a day; Duration: 30 days Active FLUTICASONE NASAL 50 mcg/inh 1 spray(s) in each nostril twice a day; Duration: 30 days Active Fluticasone Propionate 50 MCG/ACT 1 spray(s) in each nostril twice a day; Duration: 30 days Active AZELASTINE NASAL 137 mcg/inh 2 spray(s) intranasally 2 times a day; Duration: 30 days Active AZELASTINE NASAL 137 mcg/inh 2 spray(s) intranasally 2 times a day; Duration: 30 days Active NASAL WASHES N/A DIRECTED INTRANASALLY NEEDED; Duration: 30 DAYS *Please review for potential replacement for e-prescription and drug interaction check* Active Azelastine HCl 137 MCG/SPRAY 2 spray(s) intranasally 2 times a day; Duration: 30 days Active Cetirizine HCl 10 MG 1 tab(s) orally once a day; Duration: 30 days Active Social History Tobacco Use: Social History Observation Description Date Details (start date - stop date) Never Smoker NA - NA Smoking Smart Form: Question Answer Notes Are you a: never smoker Problems Problem Type SNOMED Code ICD Code Onset Dates Problem Status W/U Status Risk Notes Problem Chronic allergic conjunctivitis (84413206) Other chronic allergic conjunctivitis (H10.45) Active confirmed Problem Allergic rhinitis caused by pollen (disorder) (45279727) Allergic rhinitis due to pollen (J30.1) Active confirmed Problem Allergic rhinitis (62418865) Other allergic rhinitis (J30.89) Active confirmed Problem Allergic rhinitis caused by pollen (disorder) (33315911) Allergic rhinitis due to pollen (J30.1) Active confirmed Problem Allergic rhiniti s due to animal (cat) (dog) hair and dander (J30.81) Active confirmed Plan Of Treatment No Information Insurance Providers Payer Name Payer Address Payer Phone Subscriber Number Group Number Insured Name Patient Relationship to Insured Coverage Start Date Coverage End Date [facility] [address] [address] [place], [place] [id number] Stella Dillon Self - patient is the insured Medical (General) History Surgical History Surgery Date(Month/Year) DNC 09/21/2017 08/22/2018 04/12/2022 Hospitalization History Reason Date(Month/Year) 04/11/2022 08/22/2018
[2025-01-06 07:35] VITALS: BP 138/76; PULSE 88; RESP 16; TEMP 36.4; O2SAT 100
--- NOTE | 2025-01-06 07:41 | WPDHPUPDATE1 ---
History and Physical Update Update Date/Time: 01/06/25 07:41 History and Physical has been reviewed, including an updated exam of the patient. There are NO changes in the patient's condition. Risks, benefits, and alternatives have been discussed and questions answered. Patient agrees to proceed with procedure.
--- NOTE | 2025-01-06 07:41 | PM.HPGS ---
History of Present Illness History of Present Illness Consent: Risks, benefits, and alternatives have been discussed and questions answered. Patient agrees to proceed with procedure. Chief complaint: abnormal uterine bleeding Narrative: Stella Dillon is a 34 year old female with prolonged bleeding for 45 days. Was recommended to undergo D&C hysteroscopy. Risks of infection, bleeding, perforation, and possible pathology are reviewed. Patient voices understanding and agrees to proceed. Review of Systems Review of Systems: not repeated day of surgery; patient states no changes in status [facility] Past Medical History Medical History (Updated 01/06/25 @ 07:44 by Bushra Pavon MD) Migraines Obesity GERD (gastroesophageal reflux disease) Chromosomal translocation Robertsonian translocation Anxiety PCOS (polycystic ovarian syndrome) Diagnosed 2016 Surgical History Surgical History (Updated 01/06/25 @ 07:44 by Bushra Pavon MD) History of D&C History of tubal ligation 2021 with Previous section 08/22/2018, 04/12/2022 Family History Family History (Reviewed 10/03/24 @ 07:52 by Berta Zamorano [facility]) Father Hypertension Mother Alive and well Father Hypertension Other PCOS (polycystic ovarian syndrome) Social History Social History (Reviewed 10/03/24 @ 07:52 by Berta Zamorano [facility]) Social History: Smoking status: Never smoker Tobacco type: cigarettes Second hand tobacco smoke exposure: No Alcohol intake: current Drinks per week: 0 Alcohol use details: Stella reports using alcohol once or twice a month Substance use: never Substance use type: does not use Do You Feel Safe in your Home?: Yes Lack of Transportation: No Lack of Food: Never True Current Housing: I Have Housing Concerned About Future Housing: No Difficulty Paying Gas/Electric Bills: No Difficulty Paying for Meds: No Currently Unemployed: No Education: Bachelor's Degree Difficulty w/ Childcare or Family Care: No Living arrangements: with family Occupation/Education: occupation Gender identity (if verbalized by the patient): Female Sexual Orientation (if Verbalized by the Patient): Straight or Heterosexual Spiritual care concerns: No Meds Home Medications and Allergies Home Medications ?Medication ?Instructions ?Recorded ?Confirmed ?Type amitriptyline 10 mg tablet 10 mg PO DAILY 04/24/24 12/31/24 History norethindrone acetate 1.5 1 tablet PO DAILY 09/11/24 12/31/24 History mg-ethinyl estradiol 30 mcg tablet (Aurovela) phentermine 37.5 mg tablet 37.5 mg PO DAILY #30 tabs 10/03/24 12/31/24 Rx Allergies Allergy/AdvReac Type Severity Reaction Status Date / Time No Known Allergies Allergy Unknown Verified 12/31/24 10:19 Exam Const: General: healthy appearing and alert Orientation/consciousness: patient oriented x3 Resp: Effort & Inspection: normal respiratory effort GI: GI Palp: Yes Soft to palpation, No Tenderness to palpation present (GI) and No Palpable mass present : External Female Exam: normal external appearance Speculum Exam - Vagina: normal appearance of the vagina and normal vaginal discharge Speculum Exam - Cervix: normal appearance of the cervix Bimanual exam- vagina & uterus: uterine size normal and consistency normal Bimanual Exam- Adnexa, other: normal adnexae and No adnexal tenderness Neuro: General: patient oriented x3 Assessment and Plan Assessment and plan (1) Menorrhagia: Code(s): N92.0 - Excessive and frequent menstruation with regular cycle Status: Acute Assessment and Plan: Plan to proceed with D&C hysteroscopy
[2025-01-06] MEDS: ACETAMINOPHEN 500 MG TABLET 1000 MG PO (08:33)
[2025-01-06] MEDS: LACTATED RINGERS 1,000 ML 30 ML IV CONT (08:40)
[2025-01-06 08:52] LABS: BEDSIDEPREGUCG Negative (Negative)
[2025-01-06 08:55] LABS: BEDSIDEPREGUCG Negative (Negative)
--- NOTE | 2025-01-06 09:18 | P.PNAN_ITS ---
Anes - Initial Pre Proc Eval Procedure: Operation Date: 01/06/25 09:45 Proposed Procedures p Hysteroscopy Dilation and Curettage - Bushra Pavon MD Date/Time: 01/06/25 09:18 Surgeon: Bushra Pavon MD Pre Op Diagnosis: abnormal uterine bleeding Patient Data Age: 34 Gender: F Height: 1.63 m Weight: 108.8 kg Last Vital Signs Temp 36.4 C L 01/06/25 07:35 Pulse 88 01/06/25 07:35 Resp 16 01/06/25 07:35 BP 138/76 01/06/25 07:35 Pulse Ox 100 01/06/25 07:35 O2 Del Method Room Air 01/06/25 07:35 Allergies Allergy/AdvReac Type Severity Reaction Status Date / Time No Known Allergies Allergy Unknown Verified 01/06/25 08:27 Home Medications ?Medication ?Instructions ?Recorded ?Confirmed ?Type amitriptyline 10 mg tablet 10 mg PO DAILY 04/24/24 History norethindrone acetate 1.5 1 tablet PO DAILY 09/11/24 0 01/06/25 History mg-ethinyl estradiol 30 mcg tablet (Aurovela) phentermine 37.5 mg tablet 37.5 mg PO DAILY #30 tabs 0 10/03/24 01/06/25 Rx Laboratory Tests 01/06/25 01/06/25 07:35 07:40 POC Urine HCG, Qual Negative Negative (Negative) (Negative) Patient hx anesthesia problems: post op nausea/vomiting Family hx anesthesia problems: none Results Review: All pre-operative results and documents have been reviewed as part of the pre- operative evaluation. [facility] Past Medical History Medical History Migraines Obesity GERD (gastroesophageal reflux disease) Chromosomal translocation Robertsonian translocation Anxiety PCOS (polycystic ovarian syndrome) Diagnosed 2016 Surgical History Surgical History History of D&C History of tubal ligation 2021 with Previous section 08/22/2018, 04/12/2022 Family History Family History Father Hypertension Mother Alive and well Father Hypertension Other PCOS (polycystic ovarian syndrome) Social History Social History Social History: Smoking status: Never smoker Tobacco type: cigarettes Second hand tobacco smoke exposure: No Alcohol intake: current Drinks per week: 0 Alcohol use details: Stella reports using alcohol once or twice a month Substance use: never Substance use type: does not use Do You Feel Safe in your Home?: Yes Lack of Transportation: No Lack of Food: Never True Current Housing: I Have Housing Concerned About Future Housing: No Difficulty Paying Gas/Electric Bills: No Difficulty Paying for Meds: No Currently Unemployed: No Education: Bachelor's Degree Difficulty w/ Childcare or Family Care: No Living arrangements: with family Occupation/Education: occupation Gender identity (if verbalized by the patient): Female Sexual Orientation (if Verbalized by the Patient): Straight or Heterosexual Spiritual care concerns: No Anes - Eval Final PreProcedure Day of Procedure 01/06/25 09:18 Patient weight: morbidly obese Heart: regular rate and rhythm Lungs: clear to auscultation Airway: Mallampati scale class II Neurological: alert and oriented Last oral intake: >/= 8 hours ASA classification: III Emergent: no Anesthetic plan: proceed Anesthesia type and monitoring: general GIVS and standard monitoring Results Review: All pre-operative results and documents have been reviewed as part of the pre- operative evaluation. Informed Consent: The patient's anesthetic plan and its attendant risks and benefits were discussed with the patient/family/POA. Questions were solicited and answers provided to the satisfaction of the patient/family/POA.
[2025-01-06] MEDS: KETOROLAC 30 MG/ML VIAL (*BKC) IV PUSH (09:30)
--- NOTE | 2025-01-06 09:46 | S_PTH ---
PATIENT: Stella Dillon LOC: [facility] U#:[id number] AGE/SX: 34/F ROOM: RE01/06/[address]: Bushra Pavon MD : 1990 BED: DIS: 01/06/2025 SPEC #: [id number] RECD: 01/06/25 10:38 STATUS: MAGDA REQ #: [id number] RADHA: 01/06/25 09:[address]: Bushra Pavon DEPT: [facility] Surgical RECD BY: Anjelica Velazquez ENTERED: 01/06/25 10:38 SP TYPE: Surgical OTHR DR: Tanna Crane DO Tissues: A - Endometrial Curettings Procedures: Hematoxylin and Eosin Stain Gross and Microscopic Level 4
--- NOTE | 2025-01-06 09:51 | W.PM.PROC2 ---
Procedure Note - Detailed Date of Procedure 01/06/25 Pre-op Diagnosis Menorrhagia Post-op Diagnosis Same Procedure Performed D&C hysteroscopy with resection of polyp Surgeon Bushra Pavon MD Anesthesia MAC Findings Uterus sounds to 11cm. There was a small polyp at the right cornua. The remainder of the endometrium appears grossly normal. Description of Procedure The patient was taken to the operating room and placed under anesthesia in the dorsal lithotomy position. She was prepped and draped in the usual sterile fashion. The bivalve speculum was placed in the vagina and the cervix grasped on the anterior lip with a tenaculum. The uterus is sounded to 11cm. The diagnostic hysteroscope was placed and with the above-stated findings the small Aveta resection device is placed. Under direct visualization the polyp was removed in its entirety. The thickened wall adjacent was also resected. The hysteroscope was then removed and the sharp curette used to curette the endometrium until a good uterine cry was noted in all areas. All instruments are removed. Sponge, needle, and instrument counts are correct per the OR staff. The patient was awakened from anesthesia and taken to recovery in stable condition. Estimated Blood Loss 5 Drains No Packing No Pathology Yes (Endometrial curettings) Complications No immediate complications Condition Stable Disposition PACU
[2025-01-06 09:54] VITALS: BP 142/87; PULSE 92; RESP 14; O2SAT 100
[2025-01-06 10:20] VITALS: BP 133/92; PULSE 70
== END 2025-01-06 10:39 | disposition home or self-care (01) ==
PROVIDERS: PCP Family Medicine; Visit Provider Obstetrics & Gynecology Gynecology
PROC: 0U5B8ZZ Destruction of Endometrium, Via Natural or Artificial Opening Endoscopic (ICD-10-PCS; CPT 58563; principal; 2025-01-06 09:45)
DX: N84.0 Polyp of corpus uteri (principal); K21.9 Gastro-esophageal reflux disease without esophagitis; F41.9 Anxiety disorder, unspecified; E28.2 Polycystic ovarian syndrome; Q99.8 Other specified chromosome abnormalities; E66.01 Morbid (severe) obesity due to excess calories; Z68.41 Body mass index [BMI] 40.0-44.9, adult; Z98.890 Other specified postprocedural states; Z98.51 Tubal ligation status
CPT/HCPCS: 58558; 88305; A9270; J1100; J1885; J2003; J2250; J2405; J2704; J3010; J7120

== ENCOUNTER 2025-01-10 10:37 | Outpatient (CLI) | payer OTHER, SELFPAY ==
--- OUTSIDE RECORDS SUMMARY | 2023-10-28 16:30 | XMS_ITS ---
Author Organization [facility] [place] ([address]) Address [address] [place] [address] Care Team Providers Care Assistant Auto Center Manager Name Role Phone Tanna Crane Primary Care Provider UnavailViv Galvez Unavailable [phone] ZZ-Migration, Provider Unavailable Unavailab le REASON FOR VISIT [facility] To [facility] Conversion Encounter Medications Medication SIG (Take, Route, Frequency, Duration) Notes Start Date End Date Status Azelastine HCl 137 MCG/SPRAY 2 spray(s) intranasally 2 times a day; Duration: 30 days Active Fluticasone Propionate 50 MCG/ACT 1 spray(s) in each nostril twice a day; Duration: 30 days Active NASAL WASHES N/A DIRECTED INTRANASALLY NEEDED; Duration: 30 DAYS *Please review for potential replacement for e-prescription and drug interaction check* Active Azelastine HCl 137 MCG/SPRAY 2 spray(s) intranasally 2 times a day; Duration: 30 days Active Cetirizine HCl 10 MG 1 tab(s) orally once a day; Duration: 30 days Active Encounters Encounter Location Date Provider Diagnosis [place] [facility] [place] [place] [address] 10/28/2023 Provider ZZ-Migration Allergic rhinitis due to pollen J30.1 Assessments Encounter Date Diagnosis (ICD Code) Assessment Notes Treatment Notes Treatment Clinical Notes Section Notes 10/28/2023 Allergic rhinitis due to pollen (ICD-10 - J30.1) Plan Of Treatment Medication Medication Name Sig Start Date Stop Date Notes Fluticasone Propionate 50 MCG/ACT 1 spray(s) in each nostril twice a day; Duration: 30 days NASAL WASHES N/A DIRECTED INTRANASALLY NEEDED; Duration: 30 DAYS *Please review for potential replacement for e-prescription and drug interaction check* Azelastine HCl 137 MCG/SPRAY 2 spray(s) intranasally 2 times a day; Duration: 30 days Cetirizine HCl 10 MG 1 tab(s) orally onc e a day; Duration: 30 days Progress Notes * Stella ADAMSON NDOB:1990 (34 yo F)Acc No.[id number]:10/28/2023 Patient: Stella MCNEILL Provider: Vincent Eastman :1990 A ge:33 Y S ex:Female Date:10/28/2023 Address:[address] [place], [place] [address], [facility] Pcp:Tanna Crane Subjective: * Chief Complaints: * 1 . [facility] To [facility] Conversion Encounter. * Medical History: * Medications: T aking Azelastine HCl 137 MCG/SPRAY Solution 2 spray(s) intranasally 2 times a day Objective: * Vitals: Assessment: * Assessment: 1. A llergic rhinitis due to pollen - J30.1 (Primary) Plan: * Treatment: * Billing Information: * Visit Code: * Procedure Codes: * Electronic signature of Bradford UGARTE-Migration on 01/10/2025 at 10:40 AM CDT Sign off status: Pending * Provider: Vincent Eastman Date: 10/28/2023 Generated for Yohan harrison/Juan Luis/Riley on: 01/10/2025 10:40 AM CDT
--- OUTSIDE RECORDS SUMMARY | 2024-02-13 12:30 | XMS_ITS ---
Author Organization [facility] [place] ([address]) Address [address] [place] [address] Care Team Providers Care Microbiological Laboratory Technician Name Role Phone Tanna Crane Primary Care Provider Viv Leung [phone] REASON FOR VISIT ARC follow-up Encounters Encounter Location Date Provider Diagnosis [facility] [address] [place] [address] 02/13/2024 Viv Rodriguez Plan Of Treatment No Information Progress Notes * MINOStella ROSS NDOB:1990 (34 yo F)Acc No.[id number]:02/13/2024 Progress Notes Patient: Stella MCNEILL Provider: RADHA Caputo :1990 A ge:33 Y S ex:Female Date:02/13/2024 Address:[facility] [address] [facility] Pcp:Tanna Crane Subjective: * Chief Complaints: * 1 . ARC follow-up. * Medical History: Objective: * Vitals: Assessment: Plan: * Treatment: * Billing Information: * Visit Code: * Procedure Codes: * Electronic signature of Viv Rodriguez DNP, FNP-C on 01/10/2025 at 10:40 AM CDT Sign off status: Pending * Provider: RADHA Caputo Date: 1 Generated for Printi ng/Faxing/eTransmitting on: 0 01/10/2025 10:40 AM CDT
--- OUTSIDE RECORDS SUMMARY | 2025-01-10 10:40 | XMS_ITS | Patient Health Record ---
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 Name Role Phone Tanna Crane Primary Care Provider Viv Leung Unavailable [phone] Allergies No Known Allergies Reason For Referral [...] Status Risk Notes Problem Chronic allergic conjunctivitis (45190714) Other chronic allergic conjunctivitis (H10.45) Active confirmed Problem Allergic rhinitis caused by pollen (disorder) (13095994) Allergic rhinitis due to pollen (J30.1) Active confirmed Problem Allergic rhinitis (49776015) Other allergic rhinitis (J30.89) Active confirmed Problem Allergic rhinitis caused by pollen (disorder) (92178422) Allergic rhinitis due to pollen (J30.1) Active confirmed Problem Allergic rhinitis caused by animal hair and dander (280482210965490) Allergic rhinitis due to animal (cat) (dog) hair and dander (J30.81) Active confirmed Plan Of Treatment No Information Insurance Providers Payer Name Payer Address Payer Phone Subscriber Number Group Number Insured Name Patient Relationship to Insured Coverage Start Date Coverage End Date R [address] [address] [place], [place] [id number] Stella Dillon Self - patient is the insured Medical (General) History Surgical History Surgery Date(Month/Year) DNC 09/21/2017 08/22/2018 04/12/2022 Hospitalization History Reason Date(Month/Year) 04/11/2022 08/22/2018
--- OUTSIDE RECORDS SUMMARY | 2025-01-10 10:40 | XMS_ITS | Clinical Summary ---
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
--- OUTSIDE RECORDS SUMMARY | 2025-01-10 10:40 | XMS_ITS | Clinical Summary ---
Author Organization [facility] Address [address] [place] [address] Care Team Providers Care Trimmer Press Clippings Name Role Phone Tanna Crane DO Primary Care Provider +1- [phone] Source Comments [facility],non-owned Affiliates and Associated Physician Practices is amultiple site organization consisting of ambulatory clinics and hospital sitesin [place], [place], [place] and [place]. This disclosure is being madepursuant to the Care Everywhere program and may not contain all information available regarding this patient. Last updated 18.[facility] Allergies Active Allergy Reactions Criticality Noted Date [...] Description 10/14/2024 3:30 PM CDT Office Visit [facility] [place] [address] [place] [address] Sharmin Reis MD Generalized abdominal pain (Primary [...] on file Legal Sex Female 4:02 PM [employer]ENT[employer] Gender Identity Not on file Sexual Orientation [...] Description 10/20/2025 3:30 PM CDT Office Visit [facility] [place] [address] [place] [address] Health Maintenance Due Date Last Done Comments [...] week prior to your last dose Insurance [facility] Member Subscriber Plan / Payer (Ef fective 2015-Present) Name:Shlomo Adamson Relation to Subscriber:Self Name:SHLOMO ADAMSON Payer ID:[id number] (NAIC) Type:PPO Address: [address] [place] [address] [facility] Care Teams Trimmer Press Clippings Relationship Specialty Start Date End Date Tanna Crane DO [address] [facility] [address] [place] [address] PCP - General Family Medicine 01/01/24
[2025-01-10 12:23] LABS: Cholesterol 199 mg/dL (0-200); HDL Direct 56 mg/dL; Triglycerides 89 mg/dL (<150)
== END 2025-01-10 10:38 | disposition home or self-care (01) ==
LOC: ANHLAB 10:38
PROVIDERS: PCP Family Medicine; Visit Provider Family Medicine
DX: Z00.00 Encounter for general adult medical examination without abnormal findings (principal); E28.2 Polycystic ovarian syndrome; E55.9 Vitamin D deficiency, unspecified
CPT/HCPCS: 36415; 80061; 82306